=== PATIENT | male | born 1940 | race Caucasian/White ===

== ENCOUNTER → 2017-08-16 14:29 | Outpatient (CLI) | payer MEDICARE, OTHER, SELFPAY ==
--- NOTE | 2017-08-16 | DI.RAD.S_ITS ---
PROCEDURE: XR CHEST 2V INDICATIONS: COUGH TECHNIQUE: 2 views of the chest were acquired. COMPARISON: [facility], , CHEST 2 VIEW, 10/21/2016, 15:37. FINDINGS: Surgical changes and devices: Median sternotomy and MVR Lungs and pleura: No pleural effusions or pneumothorax. Lungs are clear. Mediastinum: Mediastinal contours are normal. Heart size is normal. Bones and chest wall: No suspicious bony abnormalities. Soft tissues appear unremarkable. IMPRESSION: 1. Postoperative changes. 2. No acute cardiopulmonary abnormality Dictated by: Fernando Bacon M.D. on 08/16/2017 at 15:04 Approved by: Fernando Bacon M.D. on 08/16/2017 at 15:05
== END ==
PROVIDERS: Family Provider Internal Medicine; PCP Internal Medicine; Visit Provider Physician Assistant
DX: R05 Cough (principal)
CPT/HCPCS: 71046

== ENCOUNTER → 2017-10-01 12:29 | Outpatient (CLI) | payer MEDICARE, OTHER, SELFPAY ==
--- NOTE | 2017-10-08 08:19 | PM.PFT.1 ---
Pulmonary Function Test Referral & Results Date Patient Seen: 10/01/17 Requesting provider: Sj Tran Indication: Bronchitis Results: The spirometry demonstrates an FVC of 3.43 L which is 94% of predicted. The FEV1 was measured at 2.66 L which is 103% of predicted. The FEV1/FVC ratio was 78 which is 107% of predicted. Following the administration of bronchodilator there was no appreciable change in above normal numbers. Lung volumes show an SVC of 3.82 L which is 95% of predicted. The diffusing capacity was measured at 27.58 which is 97% of predicted. The maximum voluntary ventilation was normal. Interpretation: This study demonstrates normal pulmonary function
== END ==
PROVIDERS: Family Provider Internal Medicine; Visit Provider Internal Medicine Cardiovascular Disease
DX: J40 Bronchitis, not specified as acute or chronic (principal)
CPT/HCPCS: 94010; 94060; 94726; 94729

== ENCOUNTER → 2017-12-16 09:21 | Outpatient (CLI) | payer MEDICARE, OTHER, SELFPAY ==
[2017-12-16 12:12] LABS: Alanine Aminotransferase 41 IU/L (21-72); Albumin 4.5 g/dL (3.5-5.0); Albumin Globulin Ratio 1.6 (1.0-2.8); Alkaline Phosphatase 58 U/L (38-126); Aspartate Aminotransferase 38 IU/L (17-59); BUN Creatinine Ratio 16.7 (6-22); Bilirubin Total 0.4 mg/dL (0.2-1.3); Blood Urea Nitrogen 15 mg/dL (9-20); Calcium 9.7 mg/dL (8.4-10.2); Carbon Dioxide 29 mmol/L (22-32); Chloride 102 mmol/L (98-107); Cholesterol 197 mg/dL (140-199); Estimated Glomerular Filt Rate > 60.0 mL/min (>60); Globulin 2.8 g/dL (1.7-4.1); Glucose 79 mg/dL (80-110); HDL Cholesterol 101 mg/dL (40-60); HEMOLYSIS < 15 (0-50); LDL Cholesterol Calculated 68 mg/dL (<100); Sodium 144 mmol/L (137-145); Total Protein 7.3 g/dL (6.3-8.2); Triglycerides 141 mg/dL (35-150)
== END ==
PROVIDERS: Family Provider Internal Medicine; Visit Provider Internal Medicine Cardiovascular Disease
DX: E78.5 Hyperlipidemia, unspecified (principal); I34.1 Nonrheumatic mitral (valve) prolapse
CPT/HCPCS: 36415; 80053; 80061

== ENCOUNTER → 2018-06-15 08:43 | Outpatient (CLI) | payer MEDICARE, OTHER, SELFPAY ==
[2018-06-15 10:38] LABS: Alanine Aminotransferase 33 IU/L (21-72); Albumin 4.2 g/dL (3.5-5.0); Albumin Globulin Ratio 1.5 (1.0-2.8); Alkaline Phosphatase 62 U/L (38-126); Aspartate Aminotransferase 29 IU/L (17-59); Bilirubin Total 0.6 mg/dL (0.2-1.3); Blood Urea Nitrogen 18 mg/dL (9-20); Calcium 9.9 mg/dL (8.4-10.2); Carbon Dioxide 28 mmol/L (22-32); Chloride 102 mmol/L (98-107); Cholesterol 184 mg/dL (140-199); Estimated Glomerular Filt Rate > 60.0 mL/min (>60); Globulin 2.8 g/dL (1.7-4.1); Glucose 97 mg/dL (80-110); HDL Cholesterol 90 mg/dL (40-60); HEMOLYSIS < 15 (0-50); LDL Cholesterol Calculated 77 mg/dL (<100); Potassium 4.7 mmol/L (3.4-5.1); Sodium 141 mmol/L (137-145); Triglycerides 87 mg/dL (35-150)
== END ==
PROVIDERS: Family Provider Internal Medicine; Visit Provider Internal Medicine Cardiovascular Disease
DX: I34.1 Nonrheumatic mitral (valve) prolapse (principal); E78.5 Hyperlipidemia, unspecified; I97.89 Other postprocedural complications and disorders of the circulatory system, not elsewhere classified; I48.91 Unspecified atrial fibrillation
CPT/HCPCS: 36415; 80053; 80061

== ENCOUNTER → 2019-01-02 09:13 | Outpatient (CLI) | payer MEDICARE, OTHER, SELFPAY ==
[2019-01-02 10:18] LABS: Alanine Aminotransferase 32 IU/L (<50); Albumin 4.3 g/dL (3.5-5.0); Albumin Globulin Ratio 1.5 (1.0-2.8); Alkaline Phosphatase 52 U/L (38-126); Aspartate Aminotransferase 33 IU/L (17-59); BUN Creatinine Ratio 18.9 (6-22); Bilirubin Total 0.6 mg/dL (0.2-1.3); Blood Urea Nitrogen 17 mg/dL (9-20); Calcium 9.5 mg/dL (8.4-10.2); Carbon Dioxide 30 mmol/L (22-32); Chloride 105 mmol/L (98-107); Cholesterol 195 mg/dL (140-199); Estimated Glomerular Filt Rate > 60.0 mL/min (>60); Globulin 2.8 g/dL (1.7-4.1); Glucose 89 mg/dL (80-110); HDL Cholesterol 54 mg/dL (40-60); HEMOLYSIS < 15 (0-50); LDL Cholesterol Calculated 108 mg/dL (<100); Potassium 4.5 mmol/L (3.4-5.1); Sodium 141 mmol/L (137-145); Total Protein 7.1 g/dL (6.3-8.2); Triglycerides 166 mg/dL (35-150)
== END ==
PROVIDERS: Family Provider Internal Medicine; PCP Internal Medicine; Visit Provider Internal Medicine Cardiovascular Disease
DX: E78.5 Hyperlipidemia, unspecified (principal); I97.89 Other postprocedural complications and disorders of the circulatory system, not elsewhere classified; I48.91 Unspecified atrial fibrillation; I34.1 Nonrheumatic mitral (valve) prolapse
CPT/HCPCS: 36415; 80053; 80061

== ENCOUNTER → 2019-02-09 09:07 | Outpatient (CLI) | payer MEDICARE, OTHER, SELFPAY ==
[2019-02-09 09:27] LABS: Add Manual Diff / Slide Review NO; Basophils Absolute Auto 0 /uL (0-100); Basophils Percent Auto 0.6 % (0-2); Eosinophils Absolute Auto 400 /uL (0-450); Eosinophils Percent Auto 4.9 % (2-4); Hematocrit 43.6 % (41-53); Hemoglobin 14.7 g/dL (13.5-17.5); Lymphocytes Absolute Auto 2100 /uL (1100-4500); Lymphocytes Percent Auto 27.6 % (25-40); Mean Corpuscular HGB Conc 33.8 % (30-36); Mean Corpuscular Hemoglobin 32.3 PG (26-34); Mean Corpuscular Volume 95.6 fL (80-100); Monocytes Absolute Auto 500 /uL (0-900); Monocytes Percent Auto 6.4 % (3-14); Neutrophils Absolute Auto 4700 /uL (1500-7000); Neutrophils Percent Auto 60.5 % (50-75); Platelet Count 207 X10^3/uL (150-400); Red Blood Cell Count 4.56 X10^6/uL (4.5-5.9); Red Cell Distribution Width 12.9 % (11.6-14.8); White Blood Cell Count 7.7 X10^3/uL (4.5-11.0)
[2019-02-09 10:13] LABS: BUN Creatinine Ratio 21.8 (6-22); Blood Urea Nitrogen 24 mg/dL (9-20); Calcium 9.7 mg/dL (8.4-10.2); Carbon Dioxide 30 mmol/L (22-32); Chloride 102 mmol/L (98-107); Estimated Glomerular Filt Rate > 60.0 mL/min (>60); Glucose 100 mg/dL (80-110); HEMOLYSIS < 15 (0-50); Potassium 4.7 mmol/L (3.4-5.1); Sodium 141 mmol/L (137-145)
[2019-02-09 10:43] LABS: Thyroid Stimulating Hormone 2.19 uIU/mL (0.47-4.68)
== END ==
PROVIDERS: PCP Internal Medicine; Visit Provider Internal Medicine Cardiovascular Disease
DX: I95.1 Orthostatic hypotension (principal); R53.83 Other fatigue; I34.1 Nonrheumatic mitral (valve) prolapse
CPT/HCPCS: 36415; 80048; 84443; 85025

== ENCOUNTER → 2019-03-21 10:36 | Outpatient (CLI) | payer MEDICARE, OTHER, SELFPAY ==
[2019-03-21 11:17] LABS: Add Manual Diff / Slide Review NO; Basophils Absolute Auto 100 /uL (0-100); Basophils Percent Auto 0.8 % (0-2); Eosinophils Absolute Auto 900 /uL (0-450); Eosinophils Percent Auto 12.6 % (2-4); Hematocrit 45.1 % (41-53); Hemoglobin 15.3 g/dL (13.5-17.5); Lymphocytes Absolute Auto 2200 /uL (1100-4500); Mean Corpuscular Hemoglobin 32.4 PG (26-34); Mean Corpuscular Volume 95.3 fL (80-100); Monocytes Absolute Auto 600 /uL (0-900); Monocytes Percent Auto 7.5 % (3-14); Neutrophils Absolute Auto 3600 /uL (1500-7000); Neutrophils Percent Auto 49.1 % (50-75); Platelet Count 199 X10^3/uL (150-400); Red Blood Cell Count 4.73 X10^6/uL (4.5-5.9); Red Cell Distribution Width 13.6 % (11.6-14.8); White Blood Cell Count 7.3 X10^3/uL (4.5-11.0)
[2019-03-21 11:33] LABS: BUN Creatinine Ratio 26.4 (6-22); Blood Urea Nitrogen 29 mg/dL (9-20); Calcium 9.6 mg/dL (8.4-10.2); Carbon Dioxide 31 mmol/L (22-32); Chloride 102 mmol/L (98-107); Estimated Glomerular Filt Rate > 60.0 mL/min (>60); Glucose 95 mg/dL (80-110); Sodium 141 mmol/L (137-145)
[2019-03-21 11:34] LABS: HEMOLYSIS 58 (0-50); Potassium 5.1 mmol/L (3.4-5.1)
[2019-03-21 11:41] LABS: B Type Natriuretic Peptide < 100 (<100)
== END ==
PROVIDERS: PCP Internal Medicine; Referring Provider Internal Medicine Cardiovascular Disease; Visit Provider Internal Medicine Cardiovascular Disease
DX: R60.0 Localized edema (principal); I34.0 Nonrheumatic mitral (valve) insufficiency; I50.31 Acute diastolic (congestive) heart failure
CPT/HCPCS: 36415; 80048; 83880; 85025

== ENCOUNTER → 2019-03-24 11:08 | Outpatient (CLI) | payer MEDICARE, OTHER, SELFPAY ==
[2019-03-24 12:36] LABS: BUN Creatinine Ratio 22.7 (6-22); Blood Urea Nitrogen 25 mg/dL (9-20); Calcium 9.4 mg/dL (8.4-10.2); Carbon Dioxide 28 mmol/L (22-32); Chloride 101 mmol/L (98-107); Estimated Glomerular Filt Rate > 60.0 mL/min (>60); Glucose 108 mg/dL (80-110); HEMOLYSIS < 15 (0-50); Potassium 4.5 mmol/L (3.4-5.1); Sodium 139 mmol/L (137-145)
== END ==
PROVIDERS: PCP Internal Medicine; Referring Provider Internal Medicine Cardiovascular Disease; Visit Provider Internal Medicine Cardiovascular Disease
DX: R60.0 Localized edema (principal)
CPT/HCPCS: 36415; 80048

== ENCOUNTER → 2019-04-19 17:06 | Outpatient (ROUT) | payer MEDICARE, OTHER, SELFPAY ==
[2019-04-19 18:02] LABS: Add Manual Diff / Slide Review NO; Basophils Absolute Auto 100 /uL (0-100); Basophils Percent Auto 1.2 % (0-2); Eosinophils Absolute Auto 400 /uL (0-450); Eosinophils Percent Auto 4.5 % (2-4); Hematocrit 30.2 % (41-53); Hemoglobin 10.2 g/dL (13.5-17.5); Lymphocytes Absolute Auto 1500 /uL (1100-4500); Lymphocytes Percent Auto 18.2 % (25-40); Mean Corpuscular HGB Conc 33.9 % (30-36); Mean Corpuscular Hemoglobin 32.5 PG (26-34); Mean Corpuscular Volume 95.9 fL (80-100); Monocytes Absolute Auto 500 /uL (0-900); Monocytes Percent Auto 6.2 % (3-14); Neutrophils Absolute Auto 5700 /uL (1500-7000); Neutrophils Percent Auto 69.9 % (50-75); Platelet Count 648 X10^3/uL (150-400); Red Blood Cell Count 3.15 X10^6/uL (4.5-5.9); Red Cell Distribution Width 13.9 % (11.6-14.8); White Blood Cell Count 8.1 X10^3/uL (4.5-11.0)
[2019-04-19 18:14] LABS: BUN Creatinine Ratio 16.5 (6-22); Blood Urea Nitrogen 19 mg/dL (9-20); Calcium 9.6 mg/dL (8.4-10.2); Carbon Dioxide 29 mmol/L (22-32); Chloride 103 mmol/L (98-107); Estimated Glomerular Filt Rate > 60.0 mL/min (>60); Glucose 124 mg/dL (80-110); HEMOLYSIS < 15 (0-50); Potassium 4.9 mmol/L (3.4-5.1); Sodium 139 mmol/L (137-145)
== END ==
PROVIDERS: PCP Internal Medicine; Visit Provider Internal Medicine
DX: I48.91 Unspecified atrial fibrillation (principal)
CPT/HCPCS: 80048; 85025

== ENCOUNTER → 2019-06-02 08:45 | Outpatient (CLI) | payer MEDICARE, OTHER, SELFPAY ==
[2019-06-02 10:13] LABS: Hematocrit 40.2 % (41-53); Hemoglobin 13.5 g/dL (13.5-17.5); Mean Corpuscular HGB Conc 33.6 % (30-36); Mean Corpuscular Hemoglobin 31.6 PG (26-34); Mean Corpuscular Volume 94.2 fL (80-100); Platelet Count 267 X10^3/uL (150-400); Red Blood Cell Count 4.26 X10^6/uL (4.5-5.9); Red Cell Distribution Width 14.3 % (11.6-14.8); White Blood Cell Count 5.9 X10^3/uL (4.5-11.0)
[2019-06-02 10:40] LABS: Aspartate Aminotransferase 27 IU/L (17-59); BUN Creatinine Ratio 16.7 (6-22); Blood Urea Nitrogen 19 mg/dL (9-20); Calcium 9.5 mg/dL (8.4-10.2); Carbon Dioxide 28 mmol/L (22-32); Chloride 102 mmol/L (98-107); Cholesterol 199 mg/dL (140-199); Estimated Glomerular Filt Rate > 60.0 mL/min (>60); Glucose 107 mg/dL (80-110); HDL Cholesterol 67 mg/dL (40-60); HEMOLYSIS < 15 (0-50); LDL Cholesterol Calculated 97 mg/dL (<100); Magnesium 2.3 mg/dL (1.6-2.3); Potassium 4.4 mmol/L (3.4-5.1); Sodium 140 mmol/L (137-145); Triglycerides 173 mg/dL (35-150)
[2019-06-02 11:08] LABS: TSH w/ Reflex to FT4 0.22 uIU/mL (0.47-4.68)
[2019-06-02 13:30] LABS: Free T4, Direct Thyroxine 1.02 ng/dL (0.78-2.19)
[2019-06-02 19:41] LABS: Neutrophils Absolute Manual 3540 /uL (3000-5900); Total Cells Counted 100
[2019-06-02 19:42] LABS: RBC Morphology Normal Morphology
== END ==
PROVIDERS: PCP Internal Medicine; Referring Provider Internal Medicine; Visit Provider Internal Medicine
DX: I50.33 Acute on chronic diastolic (congestive) heart failure (principal); E83.42 Hypomagnesemia; E78.2 Mixed hyperlipidemia; I48.91 Unspecified atrial fibrillation
CPT/HCPCS: 36415; 80048; 80061; 83735; 84439; 84443; 84450; 85025

== ENCOUNTER → 2019-10-26 09:55 | Outpatient (CLI) | payer MEDICARE, OTHER, SELFPAY ==
[2019-10-26 10:56] LABS: Alanine Aminotransferase 26 IU/L (<50); Albumin 4.1 g/dL (3.5-5.0); Albumin Globulin Ratio 1.2 (1.0-2.8); Alkaline Phosphatase 76 U/L (38-126); Aspartate Aminotransferase 33 IU/L (17-59); BUN Creatinine Ratio 18.3 (6-22); Bilirubin Total 0.7 mg/dL (0.2-1.3); Blood Urea Nitrogen 19 mg/dL (9-20); Calcium 9.4 mg/dL (8.4-10.2); Carbon Dioxide 32 mmol/L (22-32); Chloride 102 mmol/L (98-107); Cholesterol 195 mg/dL (140-199); Estimated Glomerular Filt Rate > 60.0 mL/min (>60); Globulin 3.3 g/dL (1.7-4.1); Glucose 95 mg/dL (80-110); HDL Cholesterol 88 mg/dL (40-60); HEMOLYSIS < 15 (0-50); LDL Cholesterol Calculated 74 mg/dL (<100); Potassium 4.5 mmol/L (3.4-5.1); Sodium 140 mmol/L (137-145); Total Protein 7.4 g/dL (6.3-8.2); Triglycerides 167 mg/dL (35-150)
== END ==
PROVIDERS: PCP Internal Medicine; Referring Provider Internal Medicine Cardiovascular Disease; Visit Provider Internal Medicine Cardiovascular Disease
DX: E78.5 Hyperlipidemia, unspecified (principal)
CPT/HCPCS: 36415; 80053; 80061

== ENCOUNTER → 2019-10-27 14:33 | Outpatient (CLI) | payer MEDICARE, OTHER, SELFPAY ==
[2019-10-29 15:31] LABS: COVID19 Sendout Not Detected (Not Detect)
== END ==
PROVIDERS: PCP Internal Medicine; Visit Provider Physician Assistant
DX: Z11.59 Encounter for screening for other viral diseases (principal)
CPT/HCPCS: 87635

== ENCOUNTER → 2020-01-03 17:22 | Outpatient (CLI) | payer MEDICARE, OTHER, SELFPAY ==
[2020-01-03 17:58] LABS: COVID19 -Nasal RAPID POSITIVE (Negative)
== END ==
PROVIDERS: PCP Internal Medicine; Visit Provider Student in an Organized Health Care Education/Training Program
DX: U07.1 COVID-19 (principal)
CPT/HCPCS: 87635

== ENCOUNTER 2020-01-04 08:37 | Emergency (ER) | payer MEDICARE, OTHER, SELFPAY ==
[2020-01-04] VITALS (7 sets, daily range): BP systolic 110–156; BP diastolic 55–68; PULSE 60–64; RESP 18; TEMP 36.3–37.1; O2SAT 98–100
--- NOTE | 2020-01-04 08:42 | DI.RAD.S_ITS ---
PROCEDURE: XR CHEST 1V INDICATIONS: COVID POS TECHNIQUE: One view of the chest was acquired. COMPARISON: [facility], CT, PE STUDY (CTA CHEST), 08/12/2016, 13:47. [facility], CR, CHEST 2 VIEW, 08/12/2016, 12:52. [facility], CR, CHEST 2 VIEW, 10/21/2016, 15:37. [facility], , XR CHEST 2V, 08/16/2017, 14:35. FINDINGS: Surgical changes and devices: Sternotomy wires are seen. Lungs and pleura: Patchy bilateral interstitial infiltrates are seen, which are most prominent involving the right upper lobe. On this semiupright portable chest examination, no large pneumothorax or large pleural effusions are seen. Mediastinum: Mediastinal contours appear normal. Heart size is normal. Bones and chest wall: No suspicious bony lesions. Age-appropriate bony degenerative changes are seen. Overlying soft tissues appear unremarkable. IMPRESSION: Bilateral interstitial infiltrates are seen, which are consistent with the given clinical history of COVID pneumonia. Postoperative and degenerative changes are seen. Dictated by: Sanket Soto M.D. on 01/04/2020 at 9:26 Approved by: Sanket Soto M.D. on 01/04/2020 at 9:28
--- NOTE | 2020-01-04 08:48 | ED_ITS ---
HPI - General Adult General Chief complaint: Shortness of Breath/Dyspnea Stated complaint: covid positive Time Seen by Provider: 01/04/20 08:41 Source: patient and family () Mode of arrival: Ambulatory Limitations: no limitations History of Present Illness HPI narrative: Patient is an 79-year-old male. Has a history of aortic valve replacement. Has been feeling sick for the past week and yesterday was diagno sed with COVID-19. Patient's who is with him states that he was very short of breath yesterday. They do have a pulse oximeter at home and in it was reported that his oxygen saturations were in the low 90s. He contacted his primary doctor today and was instructed to come to the emergency department for further evaluation. Here the patient denies chest pain. He states that he does become short of breath when he is up walking around. Has generalized body aches. Overall he does feel better than what he did yesterday. Related Data Home Medications Medication Instructions Recorded Confirmed ESCITALOPRAM OXALATE (Lexapro) 10 mg PO Q DAY #0 02/16/08 01/03/20 atorvastatin [Lipitor] 20 mg PO QDAY #0 08/12/16 01/03/20 omeprazole 20 mg PO QDAY #0 08/12/16 01/03/20 Previous Rx's Medication Instructions Recorded diazepam [Valium] 5 mg PO HS #10 tab 01/12/17 meclizine 50 mg PO Q8HP PRN #20 tab 01/12/17 Allergies Allergy/AdvReac Type Severity Reaction Status Date / Time No Known Drug Allergies Allergy Unverified 01/03/20 17:29 Review of Systems Constitutional Constitutional: Reports body ache(s), Reports chills, Reports fever(s) and Reports lethargy Cardiovascular Cardiovascular: Denies chest pain and Reports dyspnea on exertion Respiratory Respiratory: Denies cough and Reports dyspnea on exertion Gastrointestinal Gastrointestinal: Denies abdominal pain, Denies nausea and Denies vomiting Musculoskeletal Musculoskeletal: Denies arthralgias, Reports myalgias and Denies myalgias Integumentary/Breasts Skin/Breast: Denies rash Neurologic Neurologic: Denies behavioral changes Psychiatric Psychiatric: Denies behavioral changes Hematologic/Lymphatic Hematologic/Lymphatic: Denies easy bleeding and Denies easy bruising Allergic/Immunologic Allergic/Immunologic: Denies urticaria Patient History Medical History Acute viral labyrinthitis of left ear Atrial fibrillation with RVR 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 Diverticulitis Dizziness Mallet deformity of fourth finger, left Vasovagal syncope Social History Smoking Status: Former smoker Smoking Status: Former smoker Exam Initial Vital Signs Initial Vital Signs: Vital Signs Temperature 98.8 F 01/04/20 08:41 Pulse Rate 64 01/04/20 08:41 Respiratory Rate 18 01/04/20 08:41 Blood Pressure 156/68 H 01/04/20 08:41 Pulse Oximetry 99 01/04/20 08:41 Const General: cooperative and comfortable Limitations: mental status not altered HENMT Head: normal to inspection and normocephalic Resp Effort & Inspection: normal respiratory effort and not tachypneic Auscultation: clear to auscultation bilaterally Cardio Rate: regular rate Rhythm: regular rhythm Heart Sounds: murmur Skin Lesions: no lesions Rashes: no rashes Neuro General: patient alert and patient awake Cognition: normal cognition Speech: speech normal Extrem General: normal to inspection and capillary refill normal Psych Appearance: grossly normal and well kempt Course Orders Ordered: ED Orders 01/04/20 08:42 XR chest 1V Stat Vital Signs Vital signs: Vital Signs - 8 hr 01/04/20 08:41 01/04/20 08:42 01/04/20 09:00 Temperature 98.8 F 97.4 F L Pulse Rate 64 64 61 Respiratory Rate 18 18 Blood Pressure 156/68 H 156/68 H 110/55 L Pulse Oximetry 99 99 99 01/04/20 09:30 01/04/20 09:31 01/04/20 10:00 Temperature Pulse Rate 61 62 60 Respiratory Rate Blood Pressure 124/58 L 137/62 Pulse Oximetry 100 100 98 01/04/20 10:30 Temperature Pulse Rate 63 Respiratory Rate Blood Pressure 124/59 L Pulse Oximetry 99 Medical Decision Making Imaging Data Chest x-ray: Radiologist's Impression: Bilateral patchy infiltrates. MDM Narrative Medical decision making narrative: Patient is not tachypneic, not hypoxic here in the ER. He is afebrile. Not in respiratory distress. His ambulatory pulse ox was also greater than 94%. Discussed with him and his regarding his diagnosis. Feel patient could be discharged home although he was given strict return precautions. He was given instructions on quarantine himself. Same with his . They both expressed understanding and agreement. Discharge Plan Departure Patient Disposition: Home Clinical Impression: COVID-19 Instructions: DI for COVID-19 (Suspected or Confirmed ) Activity Restrictions/Additional Instructions: You need to quarantine yourself for at least the next either the next 10 days or for 24 hours after all of your symptoms resolve. Your needs to quarantine herself for 14 days starting yesterday. Contact your primary provider for a follow-up. Return to the emergency department for any new or worsening symptoms like we discussed Prescriptions: No Action ESCITALOPRAM OXALATE (Lexapro) 10 mg PO Q DAY Qty: 0 RF: 0 omeprazole 20 MG capsule,delayed release(DR/EC) 20 mg PO QDAY Qty: 0 RF: 0 atorvastatin [Lipitor] 20 MG tablet 20 mg PO QDAY Qty: 0 RF: 0 meclizine 25 MG tablet 50 mg PO Q8HP PRNQty: 20 RF: 0 diazepam [Valium] 5 MG tablet 5 mg PO HS Qty: 10 RF: 0 Referrals: Bassam Manuel MD [Primary Care Provider] -
--- NOTE | 2020-01-04 11:23 | PC.NURSE ---
pt ambulated on ra with pulse ox on with 99% o2.
== END 2020-01-04 11:05 | disposition home or self-care (01) ==
PROVIDERS: Emergency Provider Emergency Medicine; PCP Internal Medicine
DX: U07.1 COVID-19 (principal); R06.02 Shortness of breath; R50.9 Fever, unspecified
CPT/HCPCS: 71045; 99281; 99283

== ENCOUNTER → 2020-03-07 10:06 | Outpatient (CLI) | payer MEDICARE, OTHER, SELFPAY ==
--- NOTE | 2020-03-07 | DI.RAD.S_ITS ---
PROCEDURE: XR CHEST 2V INDICATIONS: OTHER SPECIFIED RESPIRATORY DISORDERS TECHNIQUE: 2 views of the chest were acquired. COMPARISON: [facility], , XR CHEST 1V, 01/04/2020, 9:02. FINDINGS: Surgical changes and devices: Median sternotomy wires are present and appear intact. A round radiopaque foreign body projects over the left mid chest and is likely outside the patient's body. It appears to be a button. Lungs and pleura: Previously noted bilateral interstitial opacities have resolved. Lungs are otherwise clear without focal consolidation. No pleural effusions or pneumothorax. Mediastinum: Mediastinal contours are normal. Heart size is normal. Bones and chest wall: No suspicious bony abnormalities. Soft tissues appear unremarkable. IMPRESSION: Chest without acute cardiopulmonary abnormalities. No focal airspace disease. Dictated by: Steven Nicolas M.D. on 03/07/2020 at 11:33 Approved by: Steven Nicolas M.D. on 03/07/2020 at 11:47
== END ==
PROVIDERS: PCP Internal Medicine; Referring Provider Internal Medicine; Visit Provider Internal Medicine
DX: J98.8 Other specified respiratory disorders (principal); E78.2 Mixed hyperlipidemia; R60.9 Edema, unspecified
CPT/HCPCS: 71046; 80053; 80061; 84439; 84443; 85025

== ENCOUNTER → 2020-03-07 15:01 | Outpatient (ROUT) | payer MEDICARE, OTHER, SELFPAY ==
[2020-03-07 16:15] LABS: Add Manual Diff / Slide Review NO; Basophils Absolute Auto 200 /uL (0-100); Eosinophils Absolute Auto 300 /uL (0-450); Eosinophils Percent Auto 5.2 % (2-4); Hematocrit 43.1 % (41-53); Hemoglobin 14.5 g/dL (13.5-17.5); Lymphocytes Absolute Auto 1700 /uL (1100-4500); Lymphocytes Percent Auto 28.9 % (25-40); Mean Corpuscular HGB Conc 33.7 % (30-36); Mean Corpuscular Volume 98.1 fL (80-100); Monocytes Absolute Auto 400 /uL (0-900); Monocytes Percent Auto 6.4 % (3-14); Neutrophils Absolute Auto 3300 /uL (1500-7000); Neutrophils Percent Auto 56.5 % (50-75); Platelet Count 219 X10^3/uL (150-400); Red Blood Cell Count 4.39 X10^6/uL (4.5-5.9); Red Cell Distribution Width 14.5 % (11.6-14.8); White Blood Cell Count 5.8 X10^3/uL (4.5-11.0)
[2020-03-07 16:23] LABS: Alanine Aminotransferase 30 IU/L (<50); Albumin 4.2 g/dL (3.5-5.0); Albumin Globulin Ratio 1.4 (1.0-2.8); Alkaline Phosphatase 71 U/L (38-126); Aspartate Aminotransferase 36 IU/L (17-59); BUN Creatinine Ratio 20.7 (6-22); Bilirubin Total 0.5 mg/dL (0.2-1.3); Blood Urea Nitrogen 25 mg/dL (9-20); Calcium 9.5 mg/dL (8.4-10.2); Carbon Dioxide 33 mmol/L (22-32); Cholesterol 190 mg/dL (140-199); Estimated Glomerular Filt Rate 57.7 mL/min (>60); Globulin 3.1 g/dL (1.7-4.1); Glucose 92 mg/dL (80-110); HDL Cholesterol 88 mg/dL (40-60); HEMOLYSIS < 15 (0-50); LDL Cholesterol Calculated 73 mg/dL (<100); Potassium 4.8 mmol/L (3.4-5.1); Sodium 140 mmol/L (137-145); Total Protein 7.3 g/dL (6.3-8.2); Triglycerides 143 mg/dL (35-150)
[2020-03-07 16:50] LABS: Chloride 104 mmol/L (98-107)
[2020-03-07 16:57] LABS: TSH w/ Reflex to FT4 0.11 uIU/mL (0.47-4.68)
[2020-03-07 17:55] LABS: Free T4, Direct Thyroxine 1.06 ng/dL (0.78-2.19)
== END ==
PROVIDERS: PCP Internal Medicine; Visit Provider Internal Medicine
DX: E78.2 Mixed hyperlipidemia (principal); R60.9 Edema, unspecified
CPT/HCPCS: 80053; 80061; 84439; 84443; 85025

== ENCOUNTER → 2020-06-10 14:20 | Outpatient (CLI) | payer MEDICARE, OTHER, SELFPAY ==
[2020-06-10 17:19] LABS: COVID19 -Nasal RAPID Negative (Negative)
== END ==
PROVIDERS: PCP Internal Medicine; Visit Provider Student in an Organized Health Care Education/Training Program
DX: Z01.812 Encounter for preprocedural laboratory examination (principal); Z20.822 Contact with and (suspected) exposure to COVID-19
CPT/HCPCS: 87635; C9803

== ENCOUNTER 2020-06-12 09:01 | Day surgery (SDC) | payer MEDICARE, OTHER, SELFPAY ==
--- NOTE | 2020-06-12 | PATH_ITS ---
[facility] Accession Number: [id number] . 01 Material submitted: . esophagus - ESOPHAGEAL - KNOWN MAXWELL'S . 01 Clinical history: . A: KNOWN MAXWELL'S . 02 Diagnosis: Esophagus, Biopsy: Squamous and columnar mucosa with no diagnostic abnormality. Negative for intestinal metaplasia. Negative for dysplasia and malignancy. [facility] 06/17/2020 1523 Local . 02 Electronically signed: . Jesika Malloy MD, Pathologist NPI- [id number] . 01 Gross description: . The specimen is received in formalin labeled esophageal and consists of two thompson fragments of soft tissue, measuring 0.4 x 0.3 x 0.2 cm in aggregate. The specimen is entirely submitted in cassette A1. ([id number]) /[facility] 06/13/2020 1647 Local . 02 Pathologist provided ICD-10: K21.9 . 02 CPT . 833722 Performed at: 01 [facility] [address] [facility], [place], [place] [id number] MD Hussein Vizcarra MD Phone: [phone] Performed at: 02 [facility] [address] [place], [place] [id number] MD Jesika Malloy MD Phone: [phone]
[2020-06-12 09:44] VITALS: BP 131/65; PULSE 59; RESP 18; TEMP 35.8; O2SAT 100; BMI 28.9
[2020-06-12] MEDS: SODIUM CHLORIDE 0.9% 1,000 ML 84 ML IV (09:53)
--- NOTE | 2020-06-12 10:31 | PM.HP.1 ---
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 Diverticulitis Dizziness Mallet deformity of fourth finger, left Vasovagal syncope Family & Social History Social History: household members spouse Tobacco & Substance use: Smoking Status Former smoker alcohol intake current alcohol intake frequency 0-2 drinks per day Substance Use Type does not use Meds Home Medications and Allergies Home Medications Medication Instructions Recorded Confirmed Type ESCITALOPRAM OXALATE (Lexapro) 10 mg PO Q DAY #0 02/16/08 06/12/20 History atorvastatin [Lipitor] 20 mg PO QDAY #0 08/12/16 06/12/20 History omeprazole 20 mg PO QDAY #0 08/12/16 06/12/20 History meclizine 50 mg PO Q8HP PRN #20 tab 01/12/17 06/12/20 Rx Allergies Allergy/AdvReac Type Severity Reaction Status Date / Time No Known Drug Allergies Allergy Verified 06/12/20 09:56 Exam Vital Signs (past 8 hours): - 06/12/20 09:44 Temperature 96.5 F L Pulse Rate 59 L Respiratory Rate 18 Blood Pressure 131/65 Pulse Oximetry 100 Oxygen Delivery Method Room Air Narrative Exam Narrative: Oropharynx free of lesions Chest clear to auscultation percussion Cardiac exam reveals no S3 or murmur. Assessment & Plan Assessment & Plan narrative: History of Chapman's esophagus. Need for follow-up upper endoscopy. Risks, benefits, alternatives have been explained.
--- NOTE | 2020-06-12 10:32 | PM.OP.ENDO ---
Operative Date/Time/Diagnoses Date of procedure: 06/12/20 Pre-op diagnosis: See indication and findings Procedure & Clinicians Study performed: EGD with biopsy Same procedure as scheduled: Yes Indications: History of Chapman's esophagus Surgeon: Sweta Santos Procedure Notes Procedure in detail: After informed consent was obtained the patient was placed in left lateral decubitus position. The video upper scope was placed into the oropharynx and with the patient's help swallowed into the esophagus. The esophagus stomach and duodenum were carefully examined. On withdrawal, retroflexed view the GE junction was performed. The scope was removed. The patient tolerated procedure well. Blood loss none Complications none Sedation Total sedation time 10 minutes Versed 3 mg fentanyl 100 mg IV titration Findings 1. Short-segment Chapman's esophagus with 2 small tongues 1 cm or less above the level of the gastric folds. Biopsies were taken in these 2 areas which virtually completely covered them. Retroflexed views showed no other abnormalities. 2. Mild scattered pre-pyloric erythema 3. Normal duodenal bulb and sweep This should be Michele's last upper endoscopy. I do not think there is any reason to continue to surveil such a small amount of Chapman's esophagus at his age.
[2020-06-12] MEDS: MIDAZOLAM 5 MG/5 ML VIAL IV (10:35)
[2020-06-12] MEDS: fentaNYL 250 MCG/5 ML INJ IV (10:36)
[2020-06-12 10:54] VITALS: BP 124/66; PULSE 60; RESP 8; TEMP 36.8; O2SAT 96
[2020-06-12 10:58] VITALS: BP 119/66; PULSE 58; RESP 8; O2SAT 94
[2020-06-12 11:04] VITALS: BP 117/43; PULSE 63; RESP 10; O2SAT 99
[2020-06-12 11:09] VITALS: BP 126/44; PULSE 63; RESP 14; O2SAT 99
== END 2020-06-12 11:26 | disposition home or self-care (01) ==
PROVIDERS: PCP Internal Medicine; Referring Provider Internal Medicine Gastroenterology; Visit Provider Internal Medicine Gastroenterology
PROC: 0DJ08ZZ Inspection of Upper Intestinal Tract, Via Natural or Artificial Opening Endoscopic (ICD-10-PCS; CPT 43235; principal; 2020-06-12 10:30)
DX: Z87.19 Personal history of other diseases of the digestive system (principal); I48.91 Unspecified atrial fibrillation
CPT/HCPCS: 43239; J2250; J3010

== ENCOUNTER → 2020-07-31 08:26 | Outpatient (CLI) | payer MEDICARE, OTHER, SELFPAY ==
[2020-07-31 09:52] LABS: Alanine Aminotransferase 38 IU/L (<50); Albumin Globulin Ratio 1.5 (1.0-2.8); Alkaline Phosphatase 67 U/L (38-126); Aspartate Aminotransferase 45 IU/L (17-59); BUN Creatinine Ratio 23.8 (6-22); Bilirubin Total 0.5 mg/dL (0.2-1.3); Blood Urea Nitrogen 25 mg/dL (9-20); Calcium 9.7 mg/dL (8.4-10.2); Carbon Dioxide 30 mmol/L (22-32); Chloride 105 mmol/L (98-107); Cholesterol 194 mg/dL (140-199); Estimated Glomerular Filt Rate > 60.0 mL/min (>60); Globulin 2.7 g/dL (1.7-4.1); Glucose 101 mg/dL (80-110); HDL Cholesterol 74 mg/dL (40-60); HEMOLYSIS < 15 (0-50); LDL Cholesterol Calculated 96 mg/dL (<100); Potassium 4.9 mmol/L (3.4-5.1); Sodium 141 mmol/L (137-145); Total Protein 6.7 g/dL (6.3-8.2); Triglycerides 121 mg/dL (35-150)
== END ==
PROVIDERS: PCP Internal Medicine; Referring Provider Internal Medicine Cardiovascular Disease; Visit Provider Internal Medicine Cardiovascular Disease
DX: I34.1 Nonrheumatic mitral (valve) prolapse (principal); I50.32 Chronic diastolic (congestive) heart failure; E78.5 Hyperlipidemia, unspecified
CPT/HCPCS: 36415; 80053; 80061

== ENCOUNTER → 2020-08-14 09:58 | Outpatient (CLI) | payer MEDICARE, OTHER, SELFPAY ==
[2020-08-14 12:05] LABS: COVID-19 CEPHEID PCR (VTM/NP) Negative (Negative)
== END ==
PROVIDERS: PCP Internal Medicine; Visit Provider Physician Assistant
DX: Z01.812 Encounter for preprocedural laboratory examination (principal); Z20.822 Contact with and (suspected) exposure to COVID-19
CPT/HCPCS: C9803; U0003

== ENCOUNTER → 2020-11-23 11:34 | Outpatient (CLI) | payer MEDICARE, OTHER, SELFPAY ==
--- NOTE | 2020-11-23 11:36 | DI.MRI.S_ITS ---
PROCEDURE: MR SHOULDER RT WO CON INDICATIONS: Unspecified rotator cuff tear or rupture of right TECHNIQUE: Noncontrast oblique coronal T2 fast spin echo with fat saturation, oblique sagittal T1 spin echo and T2 fast spin echo with fat saturation, axial T1 spin echo and T2 fast spin echo with fat saturation through the shoulder. COMPARISON: [facility], CR, XR SHOULDER 2+ VIEWS RIGHT, 11/13/2020, 13:32. FINDINGS: Image quality: Excellent. Rotator cuff: There is mild to moderate supraspinatus and infraspinatus tendinosis. Small hypointense structure is measuring up to 5 mm in size are seen at the anterior supraspinatus tendon insertion, consistent with calcifications related to calcific tendinopathy. The teres minor tendon is intact. There is mild subscapularis tendinosis. There is no significant rotator cuff muscle atrophy. Mild edema is seen within the medial supraspinatus and subscapularis muscles that is suspicious for low-grade muscle strains. Bones and bursae: No acute trabecular bone injury. Chronic traction cystic changes are seen at the posterosuperior humeral head near the rotator cuff tendon insertions. There is full-thickness cartilage loss in the central to inferior glenoid with probable cartilage delamination and subchondral cystic changes. A small glenohumeral effusion is present. Moderate degenerative changes are seen at the acromioclavicular joint with subchondral cystic changes and marginal osteophyte formation. Trace subacromial/subdeltoid bursal fluid. Capsule and soft tissues: There is mild labral degeneration without a displaced labral tear identified. Mild tendinosis of the intra-articular biceps long head tendon. There is partial effacement of the fat in the rotator interval. The glenohumeral ligaments appear to be intact. IMPRESSION: 1. 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 Mild to moderate supraspinatus and infraspinatus tendinosis. Mild subscapularis tendinosis. 2. Low-grade strains are seen involving the supraspinatus and subscapularis muscles. 3. Mild tendinosis of the intra-articular biceps long head tendon. 4. Full-thickness cartilage loss in the central to inferior glenoid with adjacent cartilage delamination as well as subchondral cystic changes and marginal osteophyte formation. Small glenohumeral effusion. 5. Mild circumferential labral degeneration. 6. Moderate acromioclavicular osteoarthrosis. Dictated by: Earl Ignacio M.D. on 11/25/2020 at 9:15 Approved by: Earl Ignacio M.D. on 11/25/2020 at 9:27
== END ==
PROVIDERS: PCP Internal Medicine; Referring Provider Orthopaedic Surgery; Visit Provider Orthopaedic Surgery
DX: M75.101 Unspecified rotator cuff tear or rupture of right shoulder, not specified as traumatic (principal); M19.011 Primary osteoarthritis, right shoulder; M25.411 Effusion, right shoulder
CPT/HCPCS: 73221

== ENCOUNTER 2020-12-21 11:26 | Emergency (ER) | payer MEDICARE, OTHER, SELFPAY ==
[2020-12-21] VITALS (10 sets, daily range): BP systolic 146–195; BP diastolic 63–81; PULSE 55–73; RESP 14–17; TEMP 36.7; O2SAT 96–100; BMI 29.0
--- NOTE | 2020-12-21 11:38 | DI.RAD.S_ITS ---
PROCEDURE: XR CHEST 1V INDICATIONS: chest pain TECHNIQUE: One view of the chest was acquired. COMPARISON: [facility], CR, XR CHEST 2V, 03/07/2020, 10:10. FINDINGS: Surgical changes and devices: Midline sternal wires. Metallic button projecting over the base the neck is likely external to the patient. Lungs and pleura: Lungs are clear. No pleural effusions or pneumothorax. Mediastinum: Mediastinal contours appear normal. Heart size is normal. Bones and chest wall: No suspicious bony lesions. Overlying soft tissues appear unremarkable. IMPRESSION: No acute cardiopulmonary findings Approved by: Alvarado Mclain M.D. on 12/21/2020 at 11:41
--- NOTE | 2020-12-21 11:38 | DI.CT.S_ITS ---
PROCEDURE: CT HEAD/BRAIN WO CON INDICATIONS: 80-year-old male with syncope, head trauma. TECHNIQUE: Noncontrast 4.5 mm thick angled axial sections acquired from the foramen magnum to the vertex, with coronal and sagittal reformats. For radiation dose reduction, the following was used: automated exposure control, adjustment of mA and/or kV according to patient size. COMPARISON: [facility], CT, HEAD WITHOUT CONTRAST, 01/12/2017, 19:27. FINDINGS: Image quality: Excellent. CSF spaces: Basal cisterns are patent. No extra-axial fluid collections. The ventricles are symmetric in size and shape. Brain: No intracranial bleeds or masses. There is cerebral volume loss for age, with resultant ventricular and sulcal prominence. There are periventricular and deep white matter chronic small vessel ischemic changes. There is intracranial internal carotid artery atherosclerosis. Skull and face: Calvarium and visualized facial bones appear intact, without suspicious lesions. Sinuses: Visualized sinuses and mastoids are clear. IMPRESSION: Moderate atrophy and chronic ischemic change without intracranial hemorrhage or mass effect. Dictated by: Alvarado Mclain M.D. on 12/21/2020 at 11:18 Approved by: Alvarado Mclain M.D. on 12/21/2020 at 11:22
[2020-12-21 12:06] LABS: Add Manual Diff / Slide Review NO; Basophils Absolute Auto 100 /uL (0-100); Basophils Percent Auto 0.9 % (0-2); Eosinophils Absolute Auto 500 /uL (0-450); Eosinophils Percent Auto 8.3 % (2-4); Hematocrit 43.5 % (41-53); Hemoglobin 14.8 g/dL (13.5-17.5); Lymphocytes Absolute Auto 1900 /uL (1100-4500); Lymphocytes Percent Auto 30.1 % (25-40); Mean Corpuscular HGB Conc 33.9 % (30-36); Mean Corpuscular Volume 97.4 fL (80-100); Monocytes Absolute Auto 500 /uL (0-900); Monocytes Percent Auto 8.3 % (3-14); Neutrophils Absolute Auto 3300 /uL (1500-7000); Neutrophils Percent Auto 52.4 % (50-75); Platelet Count 213 X10^3/uL (150-400); Red Blood Cell Count 4.47 X10^6/uL (4.5-5.9); Red Cell Distribution Width 12.7 % (11.6-14.8); White Blood Cell Count 6.3 X10^3/uL (4.5-11.0)
--- NOTE | 2020-12-21 12:11 | ED_ITS ---
HPI - Syncope General Chief Complaint: Syncope Stated Complaint: Head injury, drowsy Time Seen by Provider: 12/21/20 11:43 Source: patient Mode of arrival: Ambulatory Limitations: no limitations History of Present Illness HPI narrative: The patient was watching a game on TV 3 days ago, during a break he went to the bathroom. He was moving quickly. As he went up a quick 2 steps, he passed out he fell lacerating his scalp. He feels like he was immediately awake again. He had the scalp laceration repaired at the walk-in clinic. He declined a head CT. He saw his PCM yesterday, who also recommended a head CT. He has no significant headache, no visual changes, and no confusion. He has no peripheral numbness or weakness. He is not anticoagulated. He has a history of 5 episodes of syncope. He is had detailed cardiac workup, Long-term cardiac monitoring and echocardiogram has been benign. He does have a mitral valve replacement. He is not anticoagulated. Related Data Home Medications Medication Instructions Recorded Confirmed ESCITALOPRAM OXALATE (Lexapro) 10 mg PO Q DAY #0 02/16/08 12/20/20 atorvastatin 20 mg tablet (Lipitor) 20 mg PO QDAY #0 08/12/16 12/20/20 omeprazole 20 mg capsule,delayed 20 mg PO QDAY #0 08/12/16 12/20/20 release Previous Rx's Medication Instructions Recorded meclizine 25 mg tablet 50 mg PO Q8HP PRN #20 tab 01/12/17 Allergies Allergy/AdvReac Type Severity Reaction Status Date / Time No Known Drug Allergies Allergy Verified 12/21/20 11:40 Review of Systems Constitutional Constitutional: Reports as per HPI and Reports headache(s) Eyes Eyes: Denies blurry vision and Denies change in vision ENT Ears, Nose, Mouth, and Throat: Denies vertigo, Denies dizziness, Denies ear discharge and Reports headache(s) Cardiovascular Cardiovascular: Denies chest pain, Reports syncope and Denies rapid heart rate Respiratory Respiratory: Denies chest congestion and Denies cough Gastrointestinal Gastrointestinal: Denies abdominal pain Musculoskeletal Comments: Lower extremity pain. Integumentary/Breasts Comments: Scalp laceration from the fall as noted HPI. 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 Seems to be healing well.) Ears: TM's normal bilaterally Nose: nares normal Mouth: oral mucosae normal and other (No injuries) Eyes Pupils: PERRL EOM: EOM intact bilaterally Direct ophthalmoscopy: normal light reflex Neck Neck: full ROM, supple and No tender Resp Effort & Inspection: normal respiratory effort Auscultation: clear to auscultation bilaterally Cardio Rate: regular rate Rhythm: regular rhythm Heart Sounds: S1 normal and S2 normal GI Inspection: normal to inspection Back/Spine/Pelvis Back: normal to inspection Skin General: no rashes or lesions noted Neuro General: patient alert, patient awake, patient oriented x3 and no focal motor deficits Extrem General: full ROM (No extremity injuries) Psych Mental Status: mental status grossly normal Course Course Course Narrative: The patient has no evidence of intracranial injury. 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 He has undergone comprehensive evaluation for his syncope episodes. He is clinically stable, he is advised to follow-up with his PCM. Orders Ordered: ED Orders 12/21/20 11:38 CT head/brain wo con Stat XR chest 1V Stat EKG-12 Lead Stat 12/21/20 11:55 Complete Blood Count AUTO DIFF Stat Comprehensive Metabolic Panel Stat Lipase Stat Partial Thromboplastin Time Stat Prothrombin Time INR Stat Troponin & CK Cardiac Panel Stat Discontinued Medications Diphtheria/Tetanus/Acell Pertussis (Tet,Diph,Pertuss(Acell),Vac/Pf 0.5 Ml Syringe) 0.5 ml IM .ONCE ONE Stop: 12/21/20 11:39 Last Admin: 12/21/20 12:20 Dose: 0.5 ml Documented by: ARACELI Vital Signs Vital signs: Vital Signs - 8 hr 12/21/20 11:31 12/21/20 11:35 12/21/20 11:41 Temperature 98.1 F Pulse Rate 55 L 73 64 Respiratory Rate 14 Blood Pressure 195/81 H Pulse Oximetry 99 96 99 12/21/20 11:43 12/21/20 12:00 12/21/20 12:01 Temperature Pulse Rate 71 63 Respiratory Rate Blood Pressure 155/67 H 146/63 H Pulse Oximetry 100 99 12/21/20 12:30 12/21/20 12:31 12/21/20 13:00 Temperature Pulse Rate 60 60 58 L Respiratory Rate 16 15 14 Blood Pressure 151/70 H Pulse Oximetry 100 100 100 12/21/20 13:01 Temperature Pulse Rate 59 L Respiratory Rate 17 Blood Pressure 163/70 H Pulse Oximetry 100 MDM - Syncope Lab Data Result diagrams: 12/21/20 11:55 12/21/20 11:55 Labs: Lab Results 12/21/20 12/21/20 12/21/20 Range/Units 11:55 11:55 11:55 WBC 6.3 (4.5-11.0) X10^3/uL RBC 4.47 L (4.5-5.9) X10^6/uL Hgb 14.8 (13.5-17.5) g/dL Hct 43.5 (41-53) % MCV 97.4 (80-100) fL MCH 33.0 (26-34) PG MCHC 33.9 (30-36) % RDW 12.7 (11.6-14.8) % Plt Count 213 (150-400) X10^3/uL Neut % (Auto) 52.4 (50-75) % Lymph % (Auto) 30.1 (25-40) % [place] % (Auto) 8.3 (3-14) % Eos % (Auto) 8.3 H (2-4) % Baso % (Auto) 0.9 (0-2) % Neut # (Auto) 3300 (4053-6800) /uL Lymph # (Auto) 1900 (7651-1659) /uL [place] # (Auto) 500 (0-900) /uL Eos # (Auto) 500 H (0-450) /uL Baso # (Auto) 100 (0-100) /uL PT 11.2 (10.1-12.7) SECONDS INR 1.0 (0.9-1.3) APTT 27 (26.4-36.2) SECONDS Sodium 140 (137-145) mmol/L Potassium 4.1 (3.4-5.1) mmol/L Chloride 100 (98-107) mmol/L Carbon Dioxide 31 (22-32) mmol/L BUN 22 H (9-20) mg/dL Creatinine 1.25 (0.66-1.25) mg/dL Estimated GFR 55.4 L (>60) mL/min BUN/Creatinine Ratio 17.6 (6-22) Glucose 117 H (80-110) mg/dL Calcium 9.5 (8.4-10.2) mg/dL Total Bilirubin 0.8 (0.2-1.3) mg/dL AST 41 (17-59) IU/L ALT 30 (<50) IU/L Alkaline Phosphatase 68 (38-126) U/L Total Creatine Kinase 96 (55-170) U/L CK-MB (CK-2) TNP CK-MB (CK-2) Rel Index TNP Troponin I < 0.012 (0.01-0.034) ng/mL Total Protein 7.8 (6.3-8.2) g/dL Albumin 4.6 (3.5-5.0) g/dL Globulin 3.2 (1.7-4.1) g/dL Albumin/Globulin Ratio 1.4 (1.0-2.8) Lipase 290 (23-300) U/L Imaging Data CT scan - head: Radiologist's Impression: Launch?[address] [address] [address] Scan Report Signed Patient: Michele Bustos MR#: [id number] : 1940 Acct:[id number] Age/Sex: 80 / M Date of Service: 12/21/20 Loc: ED Accession Number: [id number] ?? Procedure: CT head/brain wo con Ordering Provider: Yahir Kirkland MD PROCEDURE:? CT HEAD/BRAIN WO CON ? INDICATIONS:? 80-year-old male with syncope, head trauma. ? TECHNIQUE:? Noncontrast 4.5 mm thick angled axial sections acquired from the foramen magnum to the vertex, with coronal and sagittal reformats.? For radiation dose reduction, the following was used:? automated exposure control, adjustment of mA and/or kV according to patient size.? ? COMPARISON:? [facility], CT, HEAD WITHOUT CONTRAST, 01/12/2017, 19:27. ? FINDINGS:? Image quality:? Excellent.? ? CSF spaces:? Basal cisterns are patent.? No extra-axial fluid collections.? The ventricles are symmetric in size and shape.? ? Brain:? No intracranial bleeds or masses.? There is cerebral volume loss for age, with resultant ventricular and sulcal prominence.? There are periventricular and deep white matter chronic small vessel ischemic changes.? There is intracranial internal carotid artery atherosclerosis.? ? Skull and face:? Calvarium and visualized facial bones appear intact, without suspicious lesions.? ? Sinuses:? Visualized sinuses and mastoids are clear.? ? IMPRESSION:? ? Moderate atrophy and chronic ischemic change without intracranial hemorrhage or mass effect. ? ? Dictated by: Alvarado Mclain M.D. on 12/21/2020 at 11:18 ? ? Approved by: Alvarado Mclain M.D. on 12/21/2020 at 11:22?? ECG Data Attestation: I personally reviewed and interpreted this ECG as follows: ( Normal sinus rhythm rate 65 beats per minute. PVCs. No acute ST T wave changes. Normal intervals. No acute ST elevations.) Discharge Plan Departure Patient Disposition: Home Clinical Impression: Syncope and collapse Instructions: DI for Syncope in Adults (Fainting) Activity Restrictions/Additional Instructions: No acute findings in your lab evaluation, EKG, or head CT are found. The head CT did show hardening of the arteries, a common finding in later decades. I do recommend baby aspirin 1 daily. Follow up the PCM regarding ongoing evaluation of your blackout episodes. Prescriptions: No Action ESCITALOPRAM OXALATE (Lexapro) 10 mg PO Q DAY Qty: 0 RF: 0 omeprazole 20 MG capsule,delayed release(DR/EC) 20 mg PO QDAY Qty: 0 RF: 0 atorvastatin [Lipitor] 20 MG tablet 20 mg PO QDAY Qty: 0 RF: 0 meclizine 25 MG tablet 50 mg PO Q8HP PRNQty: 20 RF: 0 Referrals: Bassam Manuel MD [Primary Care Provider] -
[2020-12-21 12:16] LABS: Prothrombin Time 11.2 SECONDS (10.1-12.7)
[2020-12-21 12:19] LABS: PTT Partial Thromboplastin Tim 27 SECONDS (26.4-36.2)
[2020-12-21 12:20] LABS: Alanine Aminotransferase 30 IU/L (<50); Albumin 4.6 g/dL (3.5-5.0); Albumin Globulin Ratio 1.4 (1.0-2.8); Alkaline Phosphatase 68 U/L (38-126); Aspartate Aminotransferase 41 IU/L (17-59); BUN Creatinine Ratio 17.6 (6-22); Bilirubin Total 0.8 mg/dL (0.2-1.3); Blood Urea Nitrogen 22 mg/dL (9-20); Calcium 9.5 mg/dL (8.4-10.2); Carbon Dioxide 31 mmol/L (22-32); Chloride 100 mmol/L (98-107); Creatine Kinase 96 U/L (55-170); Estimated Glomerular Filt Rate 55.4 mL/min (>60); Globulin 3.2 g/dL (1.7-4.1); Glucose 117 mg/dL (80-110); HEMOLYSIS < 15 (0-50); Lipase 290 U/L (23-300); Potassium 4.1 mmol/L (3.4-5.1); Sodium 140 mmol/L (137-145); Total Protein 7.8 g/dL (6.3-8.2)
[2020-12-21] MEDS: TET,DIPH,PERTUSS(ACELL),VAC/PF 0.5 ML SYRINGE IM (12:20)
[2020-12-21 12:32] LABS: Troponin I < 0.012 ng/mL (0.01-0.034)
== END 2020-12-21 13:19 | disposition home or self-care (01) ==
PROVIDERS: Emergency Provider Emergency Medicine; PCP Internal Medicine
DX: R55 Syncope and collapse (principal); R03.0 Elevated blood-pressure reading, without diagnosis of hypertension; Z23 Encounter for immunization
CPT/HCPCS: 36415; 70450; 71045; 80053; 82550; 83690; 84484; 85025; 85610; 85730; 90471; 93005; 93010; 99284; 90715

== ENCOUNTER → 2021-01-15 09:04 | Outpatient (CLI) | payer MEDICARE, OTHER, SELFPAY ==
[2021-01-15 12:18] LABS: COVID-19 CEPHEID PCR (VTM/NP) Negative (Negative)
== END ==
PROVIDERS: PCP Internal Medicine; Referring Provider Physician Assistant; Visit Provider Physician Assistant
DX: Z20.822 Contact with and (suspected) exposure to COVID-19 (principal)
CPT/HCPCS: C9803; U0003

== ENCOUNTER → 2021-02-17 10:45 | Outpatient (CLI) | payer MEDICARE, OTHER, SELFPAY ==
[2021-02-17 12:39] LABS: BUN Creatinine Ratio 19.7 (6-22); Blood Urea Nitrogen 25 mg/dL (9-20); Calcium 9.1 mg/dL (8.4-10.2); Carbon Dioxide 32 mmol/L (22-32); Chloride 105 mmol/L (98-107); Estimated Glomerular Filt Rate 54.4 mL/min (>60); Glucose 96 mg/dL (80-110); HEMOLYSIS < 15 (0-50); Potassium 4.8 mmol/L (3.4-5.1); Sodium 140 mmol/L (137-145)
[2021-02-21 03:23] LABS: CK-BB 0 % (0); CK-MB 0 % (0-3); CK-MM 100 % (97-100); Macro Type 1 0 % (Not Observed); Macro Type 2 0 % (Not Observed)
== END ==
PROVIDERS: PCP Internal Medicine; Referring Provider Internal Medicine Cardiovascular Disease; Visit Provider Internal Medicine Cardiovascular Disease
DX: E78.5 Hyperlipidemia, unspecified (principal); I50.32 Chronic diastolic (congestive) heart failure
CPT/HCPCS: 36415; 80048; 82550; 82553

== ENCOUNTER → 2021-07-25 09:10 | Outpatient (CLI) | payer MEDICARE, OTHER, SELFPAY ==
[2021-07-25 11:53] LABS: Alanine Aminotransferase 24 IU/L (<50); Aspartate Aminotransferase 31 IU/L (17-59); BUN Creatinine Ratio 18.6 (6-22); Bilirubin Total 0.8 mg/dL (0.2-1.3); Blood Urea Nitrogen 24 mg/dL (9-20); Calcium 9.2 mg/dL (8.4-10.2); Carbon Dioxide 27 mmol/L (22-32); Chloride 101 mmol/L (98-107); Creatine Kinase 107 U/L (55-170); Estimated Glomerular Filt Rate 55 mL/min (>60); Glucose 101 mg/dL (80-110); Potassium 4.6 mmol/L (3.4-5.1); Sodium 139 mmol/L (137-145)
[2021-07-25 11:54] LABS: Albumin 4.3 g/dL (3.5-5.0); Albumin Globulin Ratio 1.4 (1.0-2.8); Alkaline Phosphatase 62 U/L (38-126); Cholesterol 304 mg/dL (140-199); HDL Cholesterol 61 mg/dL (40-60); HEMOLYSIS < 15 (0-50); LDL Cholesterol Calculated 203 mg/dL (<100); Total Protein 7.3 g/dL (6.3-8.2); Triglycerides 198 mg/dL (35-150)
== END ==
PROVIDERS: PCP Internal Medicine; Referring Provider Internal Medicine Cardiovascular Disease; Visit Provider Internal Medicine Cardiovascular Disease
DX: E78.5 Hyperlipidemia, unspecified (principal); I50.32 Chronic diastolic (congestive) heart failure
CPT/HCPCS: 36415; 80053; 80061; 82550

== ENCOUNTER → 2021-11-19 09:37 | Outpatient (CLI) | payer MEDICARE, OTHER, SELFPAY ==
[2021-11-19 11:45] LABS: Alanine Aminotransferase 30 IU/L (<50); Albumin 3.6 g/dL (3.5-5.0); Albumin Globulin Ratio 1.3 (1.0-2.8); Alkaline Phosphatase 54 U/L (38-126); Aspartate Aminotransferase 27 IU/L (17-59); BUN Creatinine Ratio 17.9 (6-22); Bilirubin Total 0.5 mg/dL (0.2-1.3); Blood Urea Nitrogen 21 mg/dL (9-20); Calcium 8.9 mg/dL (8.4-10.2); Carbon Dioxide 28 mmol/L (22-32); Chloride 106 mmol/L (98-107); Cholesterol 198 mg/dL (140-199); Estimated Glomerular Filt Rate > 60 mL/min (>60); Globulin 2.8 g/dL (1.7-4.1); Glucose 83 mg/dL (80-110); HDL Cholesterol 62 mg/dL (40-60); HEMOLYSIS < 15 (0-50); LDL Cholesterol Calculated 101 mg/dL (<100); Potassium 4.4 mmol/L (3.4-5.1); Sodium 142 mmol/L (137-145); Total Protein 6.4 g/dL (6.3-8.2); Triglycerides 177 mg/dL (35-150)
== END ==
PROVIDERS: PCP Internal Medicine; Referring Provider Internal Medicine Cardiovascular Disease; Visit Provider Internal Medicine Cardiovascular Disease
DX: E78.5 Hyperlipidemia, unspecified (principal)
CPT/HCPCS: 36415; 80053; 80061

== ENCOUNTER → 2022-01-08 10:19 | Outpatient (CLI) | payer MEDICARE, OTHER, SELFPAY ==
[2022-01-08 11:17] LABS: Influenza A - CEPHEID Flu A NEGATIVE (NEGATIVE); Influenza B - CEPHEID Flu B NEGATIVE (NEGATIVE); Respiratory Syncytial Virus POSITIVE (Negative)
[2022-01-08 11:18] LABS: COVID-19 CEPHEID 4-PLEX PCR Negative (Negative)
== END ==
PROVIDERS: PCP Internal Medicine; Visit Provider Registered Nurse
DX: R05.1 Acute cough (principal); Z20.828 Contact with and (suspected) exposure to other viral communicable diseases
CPT/HCPCS: 0241U

== ENCOUNTER → 2022-03-13 11:11 | Outpatient (CLI) | payer MEDICARE, OTHER, SELFPAY ==
--- NOTE | 2022-03-13 11:15 | DI.US.S_ITS ---
PROCEDURE: US PERIPH VENOUS LOW EXTREM BI INDICATIONS: PAIN TECHNIQUE: Real-time imaging, as well as color and pulse Doppler interrogation, were performed of the deep veins of both legs from the inguinal ligament to the popliteal fossa. COMPARISON: None. FINDINGS: Right: The common femoral, femoral and popliteal veins are normally compressible, and free of intraluminal thrombus. Color and pulse Doppler demonstrate normal phasic intravascular flow. There is normal augmentation response to distal compression maneuver. Left: The common femoral, femoral and popliteal veins are normally compressible, and free of intraluminal thrombus. Color and pulse Doppler demonstrate normal phasic intravascular flow. There is normal augmentation response to distal compression maneuver. IMPRESSION: No deep venous thrombosis. Dictated by: Minoo Carter M.D. on 03/13/2022 at 12:09 Approved by: Minoo Carter M.D. on 03/13/2022 at 12:09
[2022-03-13 12:03] LABS: BUN Creatinine Ratio 23.8 (6-22); Blood Urea Nitrogen 31 mg/dL (9-20); Calcium 9.1 mg/dL (8.4-10.2); Carbon Dioxide 30 mmol/L (22-32); Chloride 102 mmol/L (98-107); Estimated Glomerular Filt Rate 55 mL/min (>60); Glucose 91 mg/dL (80-110); HEMOLYSIS < 15 (0-50); Potassium 4.6 mmol/L (3.4-5.1); Sodium 140 mmol/L (137-145)
== END ==
PROVIDERS: PCP Internal Medicine; Referring Provider Physician Assistant Surgical; Visit Provider Physician Assistant Surgical
DX: I87.2 Venous insufficiency (chronic) (peripheral) (principal); M79.672 Pain in left foot; M10.9 Gout, unspecified
CPT/HCPCS: 36415; 80048; 84550; 93970

== ENCOUNTER → 2022-05-27 09:01 | Outpatient (CLI) | payer MEDICARE, OTHER, SELFPAY ==
[2022-05-27 11:15] LABS: BUN Creatinine Ratio 28.2 (6-22); Blood Urea Nitrogen 33 mg/dL (9-20); Calcium 9.3 mg/dL (8.4-10.2); Carbon Dioxide 29 mmol/L (22-32); Chloride 105 mmol/L (98-107); Estimated Glomerular Filt Rate > 60 mL/min (>60); Glucose 97 mg/dL (80-110); HEMOLYSIS < 15 (0-50); Potassium 5.3 mmol/L (3.4-5.1); Sodium 140 mmol/L (137-145)
== END ==
PROVIDERS: PCP Internal Medicine; Referring Provider Internal Medicine Cardiovascular Disease; Visit Provider Internal Medicine Cardiovascular Disease
DX: I34.1 Nonrheumatic mitral (valve) prolapse (principal); E78.5 Hyperlipidemia, unspecified; I95.1 Orthostatic hypotension; R06.09 Other forms of dyspnea
CPT/HCPCS: 36415; 80048

== ENCOUNTER → 2023-03-22 09:14 | Outpatient (CLI) | payer MEDICARE, OTHER, SELFPAY ==
[2023-03-22 11:15] LABS: Albumin 3.9 g/dL (3.5-5.0); Albumin Globulin Ratio 1.3 (1.0-2.8); Alkaline Phosphatase 50 U/L (38-126); Aspartate Aminotransferase 56 IU/L (17-59); BUN Creatinine Ratio 32.8 (6-22); Bilirubin Total 0.6 mg/dL (0.2-1.3); Blood Urea Nitrogen 43 mg/dL (9-20); Carbon Dioxide 21 mmol/L (22-32); Chloride 109 mmol/L (98-107); Estimated Glomerular Filt Rate 54 mL/min (>60); Globulin 2.9 g/dL (1.7-4.1); Glucose 91 mg/dL (80-110); Sodium 140 mmol/L (137-145); Total Protein 6.8 g/dL (6.3-8.2)
[2023-03-22 11:16] LABS: HEMOLYSIS 86 (0-50); Potassium 4.6 mmol/L (3.4-5.1)
[2023-03-22 11:17] LABS: Alanine Aminotransferase 66 IU/L (<50)
[2023-03-22 11:24] LABS: NT-proBNP (BNP-Adult 18+) 380 pg/mL (<450)
== END ==
PROVIDERS: PCP Internal Medicine; Referring Provider Physician Assistant Surgical; Visit Provider Physician Assistant Surgical
DX: I50.32 Chronic diastolic (congestive) heart failure (principal)
CPT/HCPCS: 36415; 80053; 83880

== ENCOUNTER → 2023-03-30 09:19 | Outpatient (CLI) | payer MEDICARE, OTHER, SELFPAY ==
--- NOTE | 2023-03-30 11:16 | DI.US.S_ITS ---
PROCEDURE: US PERIPH VENOUS LOW EXTREM BI INDICATIONS: EDEMA TECHNIQUE: Real-time imaging, as well as color and pulse Doppler interrogation, were performed of the deep veins of both legs from the inguinal ligament to the popliteal fossa, with documentation of the visualized calf veins. COMPARISON: None. FINDINGS: Right: The common femoral, femoral, popliteal, and the visualized calf veins are normally compressible, and free of intraluminal thrombus. Color and pulse Doppler demonstrate normal phasic intravascular flow. There is normal augmentation response to distal compression maneuver. Left: The common femoral, femoral, popliteal, and the visualized calf veins are normally compressible, and free of intraluminal thrombus. Color and pulse Doppler demonstrate normal phasic intravascular flow. There is normal augmentation response to distal compression maneuver. IMPRESSION: No findings of deep venous thrombosis in either lower extremity. Dictated by: Rashida Smith M.D. on 03/30/2023 at 18:28 Approved by: Rashida Smith M.D. on 03/30/2023 at 18:29
== END ==
LOC: LAB 09:20 → US 11:15
PROVIDERS: PCP Internal Medicine; Referring Provider Physician Assistant Surgical; Visit Provider Physician Assistant Surgical
DX: M79.89 Other specified soft tissue disorders (principal)
CPT/HCPCS: 93970

== ENCOUNTER → 2023-05-13 11:21 | Outpatient (CLI) | payer MEDICARE, OTHER, SELFPAY ==
[2023-05-13 12:43] LABS: BUN Creatinine Ratio 22.4 (6-22); Blood Urea Nitrogen 33 mg/dL (9-20); Calcium 9.5 mg/dL (8.4-10.2); Carbon Dioxide 28 mmol/L (22-32); Chloride 104 mmol/L (98-107); Estimated Glomerular Filt Rate 47 mL/min (>60); Glucose 86 mg/dL (80-110); HEMOLYSIS < 15 (0-50); Potassium 4.8 mmol/L (3.4-5.1); Sodium 138 mmol/L (137-145)
== END ==
PROVIDERS: PCP Internal Medicine; Referring Provider Physician Assistant Surgical; Visit Provider Physician Assistant Surgical
DX: I50.32 Chronic diastolic (congestive) heart failure (principal)
CPT/HCPCS: 36415; 80048

== ENCOUNTER → 2023-05-20 14:32 | Outpatient (CLI) | payer MEDICARE, OTHER, SELFPAY ==
[2023-05-20 15:11] LABS: Add Manual Diff / Slide Review NO; Basophils Absolute Auto 100 /uL (0-100); Basophils Percent Auto 0.6 % (0-2); Eosinophils Absolute Auto 300 /uL (0-450); Eosinophils Percent Auto 3.1 % (2-4); Hematocrit 42.8 % (41-53); Hemoglobin 14.7 g/dL (13.5-17.5); Lymphocytes Absolute Auto 2000 /uL (1100-4500); Lymphocytes Percent Auto 23.2 % (25-40); Mean Corpuscular HGB Conc 34.4 % (30-36); Mean Corpuscular Hemoglobin 34.7 PG (26-34); Mean Corpuscular Volume 100.8 fL (80-100); Monocytes Absolute Auto 600 /uL (0-900); Monocytes Percent Auto 7.4 % (3-14); Neutrophils Absolute Auto 5600 /uL (1500-7000); Neutrophils Percent Auto 65.7 % (50-75); Platelet Count 238 X10^3/uL (150-400); Red Blood Cell Count 4.25 X10^6/uL (4.5-5.9); Red Cell Distribution Width 13.6 % (11.6-14.8); White Blood Cell Count 8.5 X10^3/uL (4.5-11.0)
[2023-05-20 16:31] LABS: BUN Creatinine Ratio 22.2 (6-22); Blood Urea Nitrogen 36 mg/dL (9-20); Calcium 9.9 mg/dL (8.4-10.2); Carbon Dioxide 31 mmol/L (22-32); Chloride 104 mmol/L (98-107); Estimated Glomerular Filt Rate 42 mL/min (>60); Glucose 71 mg/dL (80-110); HEMOLYSIS < 15 (0-50); Potassium 4.8 mmol/L (3.4-5.1); Sodium 139 mmol/L (137-145)
[2023-05-20 16:56] LABS: TSH w/ Reflex to FT4 0.35 uIU/mL (0.47-4.68)
[2023-05-20 18:08] LABS: Free T4, Direct Thyroxine 1.14 ng/dL (0.78-2.19)
== END ==
PROVIDERS: PCP Internal Medicine; Referring Provider Internal Medicine Cardiovascular Disease; Visit Provider Internal Medicine Cardiovascular Disease
DX: R79.89 Other specified abnormal findings of blood chemistry (principal); E78.5 Hyperlipidemia, unspecified; I47.29 Other ventricular tachycardia; R60.9 Edema, unspecified
CPT/HCPCS: 36415; 80048; 84439; 84443; 85025

== ENCOUNTER → 2023-05-26 10:43 | Outpatient (CLI) | payer MEDICARE, OTHER, SELFPAY ==
--- NOTE | 2023-05-26 10:44 | DI.US.S_ITS ---
PROCEDURE: US ABDOMEN LIMITED INDICATIONS: ELEVATED LFT'S TECHNIQUE: Real-time scanning was performed of the abdominal and retroperitoneal organs, with image documentation. COMPARISON: None. FINDINGS: Liver: Liver is normal in size and homogeneous in echotexture. Multiple hepatic cysts are seen in the right lobe. Gallbladder: Cholelithiasis. No wall thickening. No pericholecystic edema. Negative sonographic Springer's sign. Biliary ducts: Intrahepatic bile ducts are non-dilated. Extrahepatic bile duct caliber measures 4 mm. Normal is 6-7 mm or less in diameter, or 10 mm or less post-cholecystectomy. Pancreas: Visualized portions of the pancreas are sonographically normal. Miscellaneous: No free abdominal fluid. IMPRESSION: Cholelithiasis without sonographic evidence of acute cholecystitis. Multiple hepatic cysts. Approved by: Tammy Pickard M.D.,Ph.D. on 05/26/2023 at 16:33
== END ==
LOC: US 10:43
PROVIDERS: PCP Internal Medicine; Referring Provider Internal Medicine Cardiovascular Disease; Visit Provider Internal Medicine Cardiovascular Disease
DX: K76.89 Other specified diseases of liver (principal); K80.20 Calculus of gallbladder without cholecystitis without obstruction; R79.89 Other specified abnormal findings of blood chemistry
CPT/HCPCS: 76705

== ENCOUNTER → 2023-06-14 09:27 | Outpatient (CLI) | payer MEDICARE, OTHER, SELFPAY ==
[2023-06-14 11:15] LABS: Alanine Aminotransferase 38 IU/L (<50); Albumin 4.2 g/dL (3.5-5.0); Albumin Globulin Ratio 1.6 (1.0-2.8); Alkaline Phosphatase 61 U/L (38-126); Aspartate Aminotransferase 37 IU/L (17-59); Bilirubin Total 0.4 mg/dL (0.2-1.3); Blood Urea Nitrogen 35 mg/dL (9-20); Carbon Dioxide 30 mmol/L (22-32); Chloride 105 mmol/L (98-107); Estimated Glomerular Filt Rate 47 mL/min (>60); Globulin 2.7 g/dL (1.7-4.1); Glucose 98 mg/dL (80-110); HEMOLYSIS < 15 (0-50); Potassium 4.6 mmol/L (3.4-5.1); Sodium 140 mmol/L (137-145); Total Protein 6.9 g/dL (6.3-8.2)
== END ==
PROVIDERS: PCP Internal Medicine; Referring Provider Internal Medicine Cardiovascular Disease; Visit Provider Internal Medicine Cardiovascular Disease
DX: I50.32 Chronic diastolic (congestive) heart failure (principal)
CPT/HCPCS: 36415; 80053

== ENCOUNTER → 2023-06-28 10:50 | Outpatient (CLI) | payer MEDICARE, OTHER, SELFPAY ==
--- NOTE | 2023-06-28 10:53 | DI.US.S_ITS ---
PROCEDURE: US RENAL COMPLETE INDICATIONS: Chronic kidney disease, stage 2 (mild) TECHNIQUE: Real-time scanning was performed of the kidneys and bladder, with image documentation. COMPARISON: None. FINDINGS: Kidneys: 11 centimeters on the right. 11 centimeters on the left. Mild echogenic appearance bilaterally. No hydronephrosis. No complicated lesion requiring follow-up. A right renal simple appearing cyst is seen measuring up to 2.2 centimeters. Bladder: Both ureteral jets are seen. Postvoid residual 75 cc. Miscellaneous: No free pelvic fluid. IMPRESSION: No hydronephrosis. Postvoid residual is 75 cc. Echogenic kidneys are nonspecific, usually due to chronic medical renal disease. Dictated by: Sukumar Bello M.D. on 06/28/2023 at 14:07 Approved by: Sukumar Bello M.D. on 06/28/2023 at 14:10
[2023-06-28 11:53] LABS: Appearance Urine UA CLEAR; Bilirubin Urine UA NEGATIVE (NEGATIVE); Color Urine UA YELLOW; Glucose Urine UA NEGATIVE (Negative); Ketones Urine UA NEGATIVE (NEGATIVE); Leukocyte Esterase Urine UA NEGATIVE (NEGATIVE); Nitrite Urine UA NEGATIVE (Negative); Occult Blood Urine UA NEGATIVE (Negative); Protein Urine UA NEGATIVE (Negative); Specific Gravity Urine UA 1.015 (1.000-1.035); Urobilinogen Urine UA 0.2 E.U./dL (0.2); pH Urine UA 5.5 (4.5-8.0)
[2023-06-28 12:03] LABS: Bacteria Urine None Seen; Culture Indicated Urine Cult Not Indicated; RBC Urine None Seen (0-5/HPF); Squamous Epithelial Cell Urine None Seen (0-5/HPF); Urine Volume 10mL (spun); WBC Urine None Seen (0-5/HPF)
[2023-06-28 12:48] LABS: Add Manual Diff / Slide Review NO; Basophils Absolute Auto 100 /uL (0-100); Basophils Percent Auto 0.7 % (0-2); Eosinophils Absolute Auto 300 /uL (0-450); Eosinophils Percent Auto 3.3 % (2-4); Hematocrit 40.3 % (41-53); Hemoglobin 13.7 g/dL (13.5-17.5); Lymphocytes Absolute Auto 1800 /uL (1100-4500); Lymphocytes Percent Auto 22.7 % (25-40); Mean Corpuscular HGB Conc 34.1 % (30-36); Mean Corpuscular Hemoglobin 33.4 PG (26-34); Monocytes Absolute Auto 800 /uL (0-900); Monocytes Percent Auto 10.9 % (3-14); Neutrophils Absolute Auto 4900 /uL (1500-7000); Neutrophils Percent Auto 62.4 % (50-75); Platelet Count 231 X10^3/uL (150-400); Red Blood Cell Count 4.11 X10^6/uL (4.5-5.9); Red Cell Distribution Width 13.3 % (11.6-14.8); White Blood Cell Count 7.8 X10^3/uL (4.5-11.0)
[2023-06-28 13:11] LABS: Creatinine Urine Random 51.87 mg/dL; Protein (Total) Urine Random 8 mg/dL (0-12); Protein Creatinine Ratio Urine 0.15 GRAM/24H
[2023-06-28 13:14] LABS: Albumin 4.3 g/dL (3.5-5.0); Blood Urea Nitrogen 27 mg/dL (9-20); Calcium 9.1 mg/dL (8.4-10.2); Carbon Dioxide 31 mmol/L (22-32); Chloride 101 mmol/L (98-107); Estimated Glomerular Filt Rate 43 mL/min (>60); Glucose 89 mg/dL (80-110); HEMOLYSIS < 15 (0-50); Phosphorous 4.2 mg/dL (2.3-3.7); Potassium 4.9 mmol/L (3.4-5.1); Sodium 138 mmol/L (137-145)
== END ==
PROVIDERS: PCP Internal Medicine; Referring Provider Internal Medicine Nephrology; Visit Provider Internal Medicine Nephrology
DX: N18.2 Chronic kidney disease, stage 2 (mild) (principal)
CPT/HCPCS: 36415; 76770; 80069; 81001; 82570; 84156; 85025

== ENCOUNTER → 2023-09-15 09:22 | Outpatient (CLI) | payer MEDICARE, OTHER, SELFPAY ==
--- NOTE | 2023-09-15 09:34 | DI.US.S_ITS ---
PROCEDURE: US THYROID INDICATIONS: NODULE TECHNIQUE: Real-time scanning was performed of the thyroid gland, with image documentation. COMPARISON: None. FINDINGS: Thyroid: Right lobe measures 4.0 x 1.3 x 1.3 cm. Left lobe measures 3.8 x 1.4 x 1.3 cm. Isthmus is 0.6 cm thick. Echotexture is homogeneous. No focal thyroid nodules. IMPRESSION: Unremarkable thyroid ultrasound. No focal nodules identified. Dictated by: Steven Nicolas M.D. on 09/15/2023 at 19:09 Approved by: Steven Nicolas M.D. on 09/15/2023 at 19:10
== END ==
PROVIDERS: Family Provider Internal Medicine; PCP Internal Medicine; Referring Provider Internal Medicine Cardiovascular Disease; Visit Provider Internal Medicine Cardiovascular Disease
DX: E04.1 Nontoxic single thyroid nodule
CPT/HCPCS: 76536

== ENCOUNTER 2023-09-17 13:45 | Outpatient (RCR) | payer MEDICARE, OTHER, SELFPAY ==
--- NOTE | 2023-09-08 15:15 | PT.OIE ---
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, left Mitral regurgitation Mixed hyperlipidemia Obstructive sleep apnea (adult) (pediatric) Orthostatic hypotension Vasovagal syncope Venous (peripheral) insufficiency Vertigo Vestibular migraine Visit Care Team Role Provider Type Bassam Manuel MD Family Provider Physician Primary Care Provider Specialty: Internal Medicine Address: [address] [place] [address] Email: [email or web address] Lamonte John MD Attending Provider Physician Referring Provider Specialty: Ear, Nose, Throat Address: [address] [place] [address], [facility] Email: [email or web address] Therapy Initial Evaluation PT-OP-A Visit Information Start: 09/08/23 14:55 Freq: Status: Active Protocol: Document 09/08/23 13:45 DCW (Rec: 09/08/23 15:15 DCW [id number]) Out-Patient Physical Therapy Visit Information Visit Information Visit Type Initial Evaluation Visit Start Time 13:45 Visit Stop Time 14:35 Visit Number 1 Number of ORE DIGGER Visits 0 Evaluation Information Evaluation Date 09/08/23 PT-OP-B Current Condition Start: 09/08/23 14:55 Freq: Status: Active Protocol: Document 09/08/23 13:45 DCW (Rec: 09/08/23 15:15 DCW [id number]) Current Condition History of Current Condition Onset Date Three year history Current Complaints Episodes of vertigo/ instability, left vestibular hypofunction History of Current Condition Pt is an 83 year old male complaining of a three year history of spontaneous vertigo and imbalance/feeling like he walks like he is intoxicated. Pt reports episodes of vertigo last a few hours, but general instability is fairly consistent. Pt notes left- sided hearing changes. Additionally, pt has undergone a VNG, which reportedly shows mild left vestibular hypofunction. 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 Pt currently being following by a neurologist, and through medication, episodes of vertigo have declined from every two weeks to once a month. Pt denies tinnitus, diplopia, dysarthria , discoordination, or decreased mentation/ consciousness. Pt reports symptoms are waxing/waning in nature. 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 Patient Questionnaires Dizziness Handicap Inventory DHI Score 24% Other Questionnaire Name and Score Falls Efficacy Scale - International: PT-OP-O Vestibular Start: 09/08/23 14:55 Freq: Status: Active Protocol: Document 09/08/23 13:45 DCW (Rec: 09/08/23 15:15 DCW [id number]) Vestibular Assessment Auditory Tests Herbert Test Within normal limits Rinne Test Negative Air Conduction Results Equal Visual Testing Smooth Pursuits Horizontal WNL Smooth Pursuits Vertical WNL Saccades Horizontal WNL Saccades Vertical WNL Heave Test Positive Left Thrust Head Positive Left DVA (Line Degradation) 6 Positional Testing Layd-Hallpike Negative Left,Negative Right Rolling Test Negative Left,Negative Right PT-OP-Q Treatments Start: 09/08/23 14:55 Freq: Status: Active Protocol: Document 09/08/23 13:45 DCW (Rec: 09/08/23 15:15 DCW [id number]) Neuro Re-Education Treatment Vestibular Rehabilitation X1 Viewing Details Static target with head turns Distance From Target 4 feet Speed As tolerated Position Seated Self-Care/Home Management Treatment Education Other Education A&P of vestibular system, expectations and likely course of treatment for Unilateral vestibular hypofunction. Effectiveness of Vestibular therapy for hypofunction vs vestibular migraine. PT-OP-T Assessment and Plan Start: 09/08/23 14:55 Freq: Status: Active Protocol: Document 09/08/23 13:45 DCW (Rec: 09/08/23 15:15 DCW [id number]) Physical Therapy Assessment Rehab Potential Rehabilitation Potential Good Evaluation Complexity Number of Personal Factors/Comorbidities 3 or More Number of Body Systems Impaired 4 or More Clinical Presentation at Evaluation Unstable Impairments Impairments Balance,Functional Activities, Functional Mobility,Vestibular Goals Two Impairment Pt exhibits a six line degradation with DVA testing General Counselor Goal (LTG) Pt to improve DVA testing by at least three lines to demonstrate an at most three line degradation to demonstrate improvement with VOR LTG Duration 11/08/23 One Impairment Pt does not have an appropriate home exercise program Short Term Goal (STG) Pt to be independent and compliant with an appropriate HEP STG Duration 10/09/23 Assessment Summary Assessment Pt presents as expected with 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 Pt description of episodes of sudden vertigo lasting multiple hours 1-2x/month, which have declined in frequency and severity with help of neurologist and medications, as well as a prior history of migraine activity, are suggestive of likely vestibular migraine. Unfortunately, there are no good tests at this time to appropriately rule in or rule out vestibular migraine, and it is more a diagnosis of exclusion. Migraine activity has not been shown to respond well to vestibular therapy. However, in addition to migraine, pt exhibits testing suggestive of left vestibular hypofunction, confirmed with prior VNG. Poor DVA testing, as well as positive left thrust and heave tests, suggest pt may benefit from skilled vestibular rehabilitation in order to help compensate for vestibular loss, and may do well with vestibular adaptation/ habituation exercises, VOR retraining, and oculomotor strengthening. Physical Therapy Plan Frequency and Duration Frequency of Treatment 1-2x/week Plan of Care Start Date 09/08/23 Plan of Care End Date 11/08/23 Therapeutic Interventions Therapeutic Interventions Balance Training,Canalithic Repositioning,Coordination Training,Home Exercise Program ,Manual Therapy,Neuromuscular Re-education,Patient/Caregiver Education,Self-Care/Home Management,Therapeutic Activities,Therapeutic Exercises,Vestibular Rehabilitation Next Visit Focus/Plan Next Note Type Treatment Note Next Visit Plan X1/X2, VOR, oculomotor training
--- NOTE | 2023-09-08 15:16 | PT.OPPOC ---
Physical, Occupational & Speech Therapy At [facility] Current Diagnoses Other disorders of vestibular function, left ear (09/08/23) Dizziness and giddiness (09/08/23) Visit Care Team Role Provider Type Bassam Manuel MD Family Provider Physician Primary Care Provider Specialty: Internal Medicine Address: [address] [place] [id number] Email: [email or web address] Lamonte John MD Attending Provider Physician Referring Provider Specialty: Ear, Nose, Throat Address: [address] [place] [address], [facility] Email: [email or web address] Plan Of Care PT-OP-B Current Condition Start: 09/08/23 14:55 Freq: Status: Active Protocol: Document 09/08/23 13:45 DCW (Rec: 09/08/23 15:15 DCW [id number]) Current Condition History of Current Condition Onset Date Three year history Current Complaints Episodes of vertigo/ instability, left vestibular hypofunction History of Current Condition Pt is an 83 year old male complaining of a three year history of spontaneous vertigo and imbalance/feeling like he walks like he is intoxicated. Pt reports episodes of vertigo last a few hours, but general instability is fairly consistent. Pt notes left- sided hearing changes. Additionally, pt has undergone a VNG, which reportedly shows mild left vestibular hypofunction. 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 Pt currently being following by a neurologist, and through medication, episodes of vertigo have declined from every two weeks to once a month. Pt denies tinnitus, diplopia, dysarthria , discoordination, or decreased mentation/ consciousness. Pt reports symptoms are waxing/waning in nature. PT-OP-T Assessment and Plan Start: 09/08/23 14:55 Freq: Status: Active Protocol: Document 09/08/23 13:45 DCW (Rec: 09/08/23 15:15 DCW [id number]) Physical Therapy Assessment Rehab Potential Rehabilitation Potential Good Evaluation Complexity Number of Personal Factors/Comorbidities 3 or More Number of Body Systems Impaired 4 or More Clinical Presentation at Evaluation Unstable Impairments Impairments Balance,Functional Activities, Functional Mobility,Vestibular Goals Two Impairment Pt exhibits a six line degradation with DVA testing Snf Goal (LTG) Pt to improve DVA testing by at least three lines to demonstrate an at most three line degradation to demonstrate improvement with VOR LTG Duration 11/08/23 One Impairment Pt does not have an appropriate home exercise program Short Term Goal (STG) Pt to be independent and compliant with an appropriate HEP STG Duration 10/09/23 Assessment Summary Assessment Pt presents as expected with 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 Pt description of episodes of sudden vertigo lasting multiple hours 1-2x/month, which have declined in frequency and severity with help of neurologist and medications, as well as a prior history of migraine activity, are suggestive of likely vestibular migraine. Unfortunately, there are no good tests at this time to appropriately rule in or rule out vestibular migraine, and it is more a diagnosis of exclusion. Migraine activity has not been shown to respond well to vestibular therapy. However, in addition to migraine, pt exhibits testing suggestive of left vestibular hypofunction, confirmed with prior VNG. Poor DVA testing, as well as positive left thrust and heave tests, suggest pt may benefit from skilled vestibular rehabilitation in order to help compensate for vestibular loss, and may do well with vestibular adaptation/ habituation exercises, VOR retraining, and oculomotor strengthening. Physical Therapy Plan Frequency and Duration Frequency of Treatment 1-2x/week Plan of Care Start Date 09/08/23 Plan of Care End Date 11/08/23 Therapeutic Interventions Therapeutic Interventions Balance Training,Canalithic Repositioning,Coordination Training,Home Exercise Program ,Manual Therapy,Neuromuscular Re-education,Patient/Caregiver Education,Self-Care/Home Management,Therapeutic Activities,Therapeutic Exercises,Vestibular Rehabilitation Next Visit Focus/Plan Next Note Type Treatment Note Next Visit Plan X1/X2, VOR, oculomotor training Plan of Care Dates Plan of Care Start Date 09/08/23 Plan of Care End Date 11/08/23 Electronically Signed by: Armando Mcmillan, PT 09/08/23 0912 If you are in agreement with this Plan of Care, please return a signed and dated copy. I have reviewed this Plan of Care and certify that the skilled therapy services above are required to meet the patient?s needs. Physician Signature Date Printed Name and Credentials Clinical Instructor Signature Printed Name and Credentials
--- NOTE | 2023-09-17 14:10 | PT.OTN ---
Current Diagnoses Other disorders of vestibular function, left ear (09/17/23) Dizziness and giddiness (09/17/23) Physical Therapy Treatment Note PT-OP-A Visit Information Start: 09/08/23 14:55 Freq: Status: Active Protocol: Document 09/17/23 13:45 DCW (Rec: 09/17/23 14:10 DCW [id number]) Out-Patient Physical Therapy Visit Information Visit Information Visit Type Discharge Summary Visit Start Time 13:45 Visit Stop Time 14:00 Visit Number 2 Number of PCAT INSTRUCTOR Visits 0 Evaluation Information Evaluation Date 09/08/23 PT-OP-B Current Condition Start: 09/08/23 14:55 Freq: Status: Active Protocol: Document 09/08/23 13:45 DCW (Rec: 09/08/23 15:15 DCW [id number]) Current Condition History of Current Condition Onset Date Three year history Current Complaints Episodes of vertigo/ instability, left vestibular hypofunction History of Current Condition Pt is an 83 year old male complaining of a three year history of spontaneous vertigo and imbalance/feeling like he walks like he is intoxicated. Pt reports episodes of vertigo last a few hours, but general instability is fairly consistent. Pt notes left- sided hearing changes. Additionally, pt has undergone a VNG, which reportedly shows mild left vestibular hypofunction. 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 Pt currently being following by a neurologist, and through medication, episodes of vertigo have declined from every two weeks to once a month. Pt denies tinnitus, diplopia, dysarthria , discoordination, or decreased mentation/ consciousness. Pt reports symptoms are waxing/waning in nature. PT-OP-C Subjective Start: 09/08/23 14:55 Freq: Status: Active Protocol: Document 09/17/23 13:45 DCW (Rec: 09/17/23 14:10 DCW [id number]) OP-PT Subjective Patient Comments Patient Comments Pt notes it has been 6 weeks since he has had a vestibular migraine, feels like his new medication is working. PT-OP-O Vestibular Start: 09/08/23 14:55 Freq: Status: Active Protocol: Document 09/08/23 13:45 DCW (Rec: 09/08/23 15:15 DC [id number]) Vestibular Assessment Auditory Tests Herbert Test Within normal limits Rinne Test Negative Air Conduction Results Equal Visual Testing Smooth Pursuits Horizontal WNL Smooth Pursuits Vertical WNL Saccades Horizontal WNL Saccades Vertical WNL Heave Test Positive Left Thrust Head Positive Left DVA (Line Degradation) 6 Positional Testing [place]-Hallpike Negative Left,Negative Right Rolling Test Negative Left,Negative Right PT-OP-Q Treatments Start: 09/08/23 14:55 Freq: Status: Active Protocol: Document 09/17/23 13:45 DCW (Rec: 09/17/23 14:10 [facility] [id number]) Self-Care/Home Management Treatment Education Other Education Current symptoms, continued discussion migrain vs vestibular hypofunction. PT-OP-T Assessment and Plan Start: 09/08/23 14:55 Freq: Status: Active Protocol: Document 09/17/23 13:45 DCW (Rec: 09/17/23 14:10 [facility] [id number]) Physical Therapy Assessment Impairments Impairments Balance,Functional Activities, Functional Mobility,Vestibular Goals Two Impairment Pt exhibits a six line degradation with DVA testing Store Lead Goal (LTG) Pt to improve DVA testing by at least three lines to demonstrate an at most three line degradation to demonstrate improvement with VOR LTG Duration 11/08/23 One Impairment Pt does not have an appropriate home exercise program Short Term Goal (STG) Pt to be independent and compliant with an appropriate HEP STG Duration 10/09/23 Assessment Summary Assessment Pt reports he has been completely asymptomatic since beginning his migraine medications, has no further complaints or concerns. Pt feels there are no limitations . Therapist and patient are in agreement pt is appropriate for discharge at this time. Pt understands he will need a new referral in order to return in the future if needed . Physical Therapy Plan Frequency and Duration Frequency of Treatment 1-2x/week Plan of Care Start Date 09/08/23 Plan of Care End Date 11/08/23 Therapeutic Interventions Therapeutic Interventions Balance Training,Canalithic Repositioning,Coordination Training,Home Exercise Program ,Manual Therapy,Neuromuscular Re-education,Patient/Caregiver Education,Self-Care/Home Management,Therapeutic Activities,Therapeutic Exercises,Vestibular Rehabilitation Discharge Physical Therapy Discharge Comments Pt asymptomatic at this time Next Visit Focus/Plan Next Note Type Discharge Summary
== END 2023-10-19 14:54 | disposition home or self-care (01) ==
LOC: PHYS 13:45
PROVIDERS: Family Provider Internal Medicine; PCP Internal Medicine; Referring Provider Otolaryngology; Visit Provider Otolaryngology
DX: H81.8X2 Other disorders of vestibular function, left ear (principal)
CPT/HCPCS: 97163; 97535

== ENCOUNTER → 2023-09-27 09:31 | Outpatient (CLI) | payer MEDICARE, OTHER, SELFPAY ==
[2023-09-27 11:53] LABS: Add Manual Diff / Slide Review NO; Basophils Absolute Auto 100 /uL (0-100); Basophils Percent Auto 1.2 % (0-2); Eosinophils Absolute Auto 200 /uL (0-450); Eosinophils Percent Auto 4.8 % (2-4); Hematocrit 42.3 % (41-53); Hemoglobin 14.3 g/dL (13.5-17.5); Lymphocytes Absolute Auto 2200 /uL (1100-4500); Lymphocytes Percent Auto 42.4 % (25-40); Mean Corpuscular HGB Conc 33.8 % (30-36); Mean Corpuscular Hemoglobin 33.1 PG (26-34); Mean Corpuscular Volume 97.8 fL (80-100); Monocytes Absolute Auto 500 /uL (0-900); Monocytes Percent Auto 8.8 % (3-14); Neutrophils Absolute Auto 2200 /uL (1500-7000); Neutrophils Percent Auto 42.8 % (50-75); Platelet Count 279 X10^3/uL (150-400); Red Blood Cell Count 4.33 X10^6/uL (4.5-5.9); Red Cell Distribution Width 13.1 % (11.6-14.8); White Blood Cell Count 5.1 X10^3/uL (4.5-11.0)
[2023-09-27 12:22] LABS: Alanine Aminotransferase 28 IU/L (<50); Albumin 4.6 g/dL (3.5-5.0); Albumin Globulin Ratio 1.8 (1.0-2.8); Alkaline Phosphatase 71 U/L (38-126); Aspartate Aminotransferase 31 IU/L (17-59); BUN Creatinine Ratio 20.1 (6-22); Bilirubin Total 0.6 mg/dL (0.2-1.3); Blood Urea Nitrogen 29 mg/dL (9-20); Calcium 10.3 mg/dL (8.4-10.2); Carbon Dioxide 26 mmol/L (22-32); Chloride 104 mmol/L (98-107); Cholesterol 237 mg/dL (140-199); Estimated Glomerular Filt Rate 48 mL/min (>60); Globulin 2.5 g/dL (1.7-4.1); Glucose 88 mg/dL (80-110); HDL Cholesterol 71 mg/dL (40-60); HEMOLYSIS < 15 (0-50); LDL Cholesterol Calculated 133 mg/dL (<100); Sodium 139 mmol/L (137-145); Total Protein 7.1 g/dL (6.3-8.2); Triglycerides 163 mg/dL (35-150); Uric Acid 4.4 mg/dL (3.5-8.5)
[2023-09-27 12:24] LABS: Potassium 5.4 mmol/L (3.4-5.1)
[2023-09-27 12:30] LABS: NT-proBNP (BNP-Adult 18+) 221 pg/mL (<450)
[2023-09-27 12:35] LABS: Vitamin D 25 Hydroxy (D3) 67.3 ng/mL (30.0-100.0)
[2023-09-27 12:50] LABS: TSH w/ Reflex to FT4 3.01 uIU/mL (0.47-4.68)
[2023-09-27 13:09] LABS: Vitamin B12 845 pg/mL (239-931)
== END ==
PROVIDERS: Family Provider Internal Medicine; PCP Internal Medicine; Visit Provider Nurse Practitioner Family
DX: E66.9 Obesity, unspecified (principal); I50.20 Unspecified systolic (congestive) heart failure; E78.5 Hyperlipidemia, unspecified; R53.83 Other fatigue; G25.81 Restless legs syndrome; N18.9 Chronic kidney disease, unspecified; K21.9 Gastro-esophageal reflux disease without esophagitis
CPT/HCPCS: 36415; 80053; 80061; 82306; 82607; 83880; 84443; 84550; 85025

== ENCOUNTER → 2023-11-10 09:16 | Outpatient (CLI) | payer MEDICARE, OTHER, SELFPAY ==
[2023-11-10 10:55] LABS: BUN Creatinine Ratio 15.2 (6-22); Blood Urea Nitrogen 21 mg/dL (9-20); Calcium 9.7 mg/dL (8.4-10.2); Carbon Dioxide 31 mmol/L (22-32); Chloride 98 mmol/L (98-107); Estimated Glomerular Filt Rate 50 mL/min (>60); Glucose 93 mg/dL (80-110); HEMOLYSIS < 15 (0-50); Potassium 4.1 mmol/L (3.4-5.1); Sodium 135 mmol/L (137-145); Uric Acid 3.4 mg/dL (3.5-8.5)
== END ==
PROVIDERS: Family Provider Internal Medicine; PCP Internal Medicine
DX: N18.30 Chronic kidney disease, stage 3 unspecified (principal)
CPT/HCPCS: 36415; 80048; 84550

== ENCOUNTER → 2024-03-29 09:02 | Outpatient (CLI) | payer MEDICARE, OTHER, SELFPAY ==
[2024-03-29 10:31] LABS: BUN Creatinine Ratio 19.2 (6-22); Blood Urea Nitrogen 23 mg/dL (9-20); C-Reactive Protein Quant < 0.5 mg/dL (<1.0); Calcium 9.5 mg/dL (8.4-10.2); Carbon Dioxide 27 mmol/L (22-32); Chloride 105 mmol/L (98-107); Estimated Glomerular Filt Rate 60 mL/min (>60); Glucose 88 mg/dL (80-110); HEMOLYSIS < 15 (0-50); Potassium 4.2 mmol/L (3.4-5.1); Sodium 139 mmol/L (137-145); Uric Acid 3.8 mg/dL (3.5-8.5)
[2024-03-29 10:35] LABS: Alanine Aminotransferase 28 IU/L (<50); Albumin 3.9 g/dL (3.5-5.0); Albumin Globulin Ratio 1.6 (1.0-2.8); Alkaline Phosphatase 68 U/L (38-126); Aspartate Aminotransferase 24 IU/L (17-59); BUN Creatinine Ratio 18.5 (6-22); Bilirubin Total 0.3 mg/dL (0.2-1.3); Blood Urea Nitrogen 23 mg/dL (9-20); Calcium 9.5 mg/dL (8.4-10.2); Carbon Dioxide 27 mmol/L (22-32); Chloride 105 mmol/L (98-107); Cholesterol 210 mg/dL (140-199); Estimated Glomerular Filt Rate 57 mL/min (>60); Globulin 2.5 g/dL (1.7-4.1); Glucose 90 mg/dL (80-110); HDL Cholesterol 59 mg/dL (40-60); HEMOLYSIS < 15 (0-50); LDL Cholesterol Calculated 117 mg/dL (<100); Potassium 4.4 mmol/L (3.4-5.1); Sodium 139 mmol/L (137-145); Total Protein 6.4 g/dL (6.3-8.2); Triglycerides 169 mg/dL (35-150)
[2024-03-29 10:38] LABS: NT-proBNP (BNP-Adult 18+) 278 pg/mL (<450)
[2024-03-29 10:41] LABS: NT-proBNP (BNP-Adult 18+) 283 pg/mL (<450)
[2024-03-31 12:36] LABS: Interleukin-6, Serum 3.7 pg/mL (0.0-13.0)
== END ==
PROVIDERS: Internal Medicine Cardiovascular Disease; Family Provider Internal Medicine; PCP Internal Medicine; Referring Provider Internal Medicine Cardiovascular Disease; Visit Provider Internal Medicine Cardiovascular Disease
DX: I50.32 Chronic diastolic (congestive) heart failure (principal); I67.7 Cerebral arteritis, not elsewhere classified; R60.0 Localized edema
CPT/HCPCS: 36415; 80048; 80053; 80061; 83529; 83880; 84550; 86140

== ENCOUNTER → 2024-07-31 06:45 | Outpatient (CLI) | payer MEDICARE, OTHER, SELFPAY ==
[2024-07-31 08:07] LABS: Alanine Aminotransferase 43 IU/L (<50); Albumin 4.1 g/dL (3.5-5.0); Albumin Globulin Ratio 1.8 (1.0-2.8); Alkaline Phosphatase 69 U/L (38-126); Aspartate Aminotransferase 54 IU/L (17-59); BUN Creatinine Ratio 27.7 (6-22); Bilirubin Total 0.5 mg/dL (0.2-1.3); Blood Urea Nitrogen 33 mg/dL (9-20); Calcium 9.5 mg/dL (8.4-10.2); Carbon Dioxide 30 mmol/L (22-32); Chloride 103 mmol/L (98-107); Cholesterol 156 mg/dL (140-199); Estimated Glomerular Filt Rate 60 mL/min (>60); Globulin 2.3 g/dL (1.7-4.1); Glucose 91 mg/dL (70-99); HDL Cholesterol 87 mg/dL (40-60); HEMOLYSIS < 15 (0-50); LDL Cholesterol Calculated 49 mg/dL (<100); Potassium 4.7 mmol/L (3.4-5.1); Sodium 138 mmol/L (137-145); Total Protein 6.4 g/dL (6.3-8.2); Triglycerides 100 mg/dL (35-150)
[2024-07-31 08:13] LABS: Prealbumin 29.3 mg/dL (17.6-36.0)
[2024-08-03 01:39] LABS: Lipoprotein (a) 10.2 nmol/L (<75.0)
== END ==
LOC: LAB 06:50
PROVIDERS: Family Provider Internal Medicine; PCP Internal Medicine; Referring Provider Internal Medicine Cardiovascular Disease; Visit Provider Internal Medicine Cardiovascular Disease
DX: E78.5 Hyperlipidemia, unspecified (principal); E78.9 Disorder of lipoprotein metabolism, unspecified; I47.29 Other ventricular tachycardia; I48.91 Unspecified atrial fibrillation; I50.32 Chronic diastolic (congestive) heart failure; I65.23 Occlusion and stenosis of bilateral carotid arteries; I95.1 Orthostatic hypotension; R60.0 Localized edema; I97.89 Other postprocedural complications and disorders of the circulatory system, not elsewhere classified; Z98.890 Other specified postprocedural states
CPT/HCPCS: 36415; 80053; 80061; 83529; 83695; 84134

== ENCOUNTER → 2025-01-16 08:20 | Outpatient (CLI) | payer MEDICARE, OTHER, SELFPAY ==
[2025-01-16 09:47] LABS: Alanine Aminotransferase 23 IU/L (<50); Albumin 4.1 g/dL (3.5-5.0); Albumin Globulin Ratio 1.6 (1.0-2.8); Alkaline Phosphatase 60 U/L (38-126); Blood Urea Nitrogen 32 mg/dL (9-20); Calcium 9.5 mg/dL (8.4-10.2); Carbon Dioxide 31 mmol/L (22-32); Chloride 103 mmol/L (98-107); Cholesterol 171 mg/dL (140-199); Estimated Glomerular Filt Rate 52 mL/min (>60); Globulin 2.5 g/dL (1.7-4.1); Glucose 90 mg/dL (70-99); HEMOLYSIS < 15 (0-50); Potassium 4.6 mmol/L (3.4-5.1); Sodium 140 mmol/L (137-145); Total Protein 6.6 g/dL (6.3-8.2); Triglycerides 64 mg/dL (35-150)
[2025-01-16 09:56] LABS: HDL Cholesterol 118 mg/dL (40-60)
== END ==
PROVIDERS: Family Provider Internal Medicine; PCP Internal Medicine; Referring Provider Internal Medicine Cardiovascular Disease; Visit Provider Internal Medicine Cardiovascular Disease
DX: E78.5 Hyperlipidemia, unspecified (principal); I47.29 Other ventricular tachycardia; I48.91 Unspecified atrial fibrillation; I50.32 Chronic diastolic (congestive) heart failure; I65.23 Occlusion and stenosis of bilateral carotid arteries; I95.1 Orthostatic hypotension; I97.89 Other postprocedural complications and disorders of the circulatory system, not elsewhere classified; R60.0 Localized edema; Z98.890 Other specified postprocedural states
CPT/HCPCS: 36415; 80053; 80061; 83695

== ENCOUNTER → 2025-02-04 13:49 | Outpatient (CLI) | payer MEDICARE, OTHER, SELFPAY ==
--- NOTE | 2025-02-04 13:51 | DI.RAD.S_ITS ---
PROCEDURE: XR CHEST 2V INDICATIONS: Rule out pneumonia TECHNIQUE: 2 views of the chest were acquired. COMPARISON: [facility], CR, XR CHEST 1V, 12/21/2020, 11:36. [facility], CR, XR CHEST 2V, 03/07/2020, 10:10. FINDINGS: Surgical changes and devices: Cardiac loop recorder. Lungs and pleura: Right lower lobe consolidation. Mediastinum: Mediastinal contours are normal. Heart size is normal. Bones and chest wall: No suspicious bony abnormalities. Soft tissues appear unremarkable. IMPRESSION: Right lower lobe pneumonia. Recommend follow-up in 1-2 months with chest x-ray to ensure resolution. Dictated by: Jorge Montes De Oca M.D. on 02/04/2025 at 13:14 Approved by: Jorge Montes De Oca M.D. on 02/04/2025 at 13:19
== END ==
LOC: RAD 13:50
PROVIDERS: Family Provider Internal Medicine; PCP Internal Medicine; Referring Provider Chiropractor; Visit Provider Chiropractor
DX: J18.9 Pneumonia, unspecified organism (principal); R05.1 Acute cough
CPT/HCPCS: 71046; 87637

== ENCOUNTER → 2025-02-04 14:04 | Outpatient (CLI) | payer MEDICARE, OTHER, SELFPAY ==
[2025-02-04 14:45] LABS: Influenza A - CEPHEID Flu A NEGATIVE (NEGATIVE); Influenza B - CEPHEID Flu B NEGATIVE (NEGATIVE)
[2025-02-04 14:46] LABS: COVID-19 CEPHEID 4-PLEX PCR Negative (Negative)
== END ==
PROVIDERS: Family Provider Internal Medicine; PCP Internal Medicine; Visit Provider Chiropractor
DX: R05.1 Acute cough (principal)
CPT/HCPCS: 87637